=== PATIENT | female | born 1985 | race Caucasian/White ===

== ENCOUNTER → 2016-10-13 | Outpatient (CLI) | payer MEDICAID ==
--- NOTE | 2016-10-14 08:50 | XR ---
EXAMINATION TYPE: XR clavicle RT DATE OF EXAM: 10/13/2016 12:02 PM COMPARISON: NONE HISTORY: Pain TECHNIQUE: 2 view submitted FINDINGS: Osseous structures intact. AC joint maintained. No acute fracture or dislocation. IMPRESSION: 1. No acute fracture or dislocation. If symptoms persist follow-up exam in 7-10 days recommended.
--- NOTE | 2016-10-14 08:51 | XR ---
EXAMINATION TYPE: XR shoulder complete RT DATE OF EXAM: 10/13/2016 12:02 PM COMPARISON: NONE HISTORY: Pain TECHNIQUE: Three views are submitted. FINDINGS: The osseous structures are intact. There is no acute fracture or dislocation. The AC joint is maint ained. IMPRESSION: 1. No acute process.
== END | disposition home or self-care (01) ==
LOC: RADXRYALE 11:31
PROVIDERS: ATTEND Family Medicine
DX: M25.511 Pain in right shoulder (principal); M89.8X1 Other specified disorders of bone, shoulder

== ENCOUNTER → 2017-05-12 | Outpatient (CLI) | payer MEDICAID ==
--- NOTE | 2017-05-13 07:10 | US ---
EXAMINATION TYPE: US abdomen complete DATE OF EXAM: 05/12/2017 COMPARISON: NONE CLINICAL HISTORY: Rt Upper quadrant pain R10.11. RUQ pain x 2 months, intermittent nausea EXAM MEASUREMENTS: Liver Length: 14.5 cm Gallbladder Wall: 0.3 cm CBD: 0.2 cm Spleen: 11.8 cm Right Kidney: 12.7 x 4.2 x 4.9 cm Left Kidney: 11.6 x 4.3 x 4.2 cm Pancreas: visualized portions appear wnl Liver: appears wnl Gallbladder: no evidence of stones Evidence for sonographic Trevino's sign: no CBD: wnl Spleen: wnl Right Kidney: no evidence of hydronephrosis or mass, limited evaluation of lower pole due to overlyi ng bowel Left Kidney: no evidence of hydronephrosis or mass Upper IVC: wnl Abd Aorta: wnl The liver is homogenous. The intrahepatic portion of the IVC and proximal abdominal aorta are within normal limits. There is no evidence of cholelithiasis. Common bile duct is unremarkable. The visu alized portions of the pancreas are homogenous. The spleen is unremarkable. Kidneys are symmetric a nd free of hydronephrosis. No renal lesions are seen. IMPRESSION: Normal study
== END | disposition home or self-care (01) ==
LOC: RADUSWWP 15:25
PROVIDERS: ATTEND Family Medicine
DX: R10.11 Right upper quadrant pain (principal)
CPT/HCPCS: 76700

== ENCOUNTER → 2018-07-01 | Outpatient (CLI) | payer MEDICAID ==
--- NOTE | 2018-07-01 10:50 | MR ---
EXAMINATION TYPE: MR brain w con, MR cervical spine w con DATE OF EXAM: 07/01/2018 COMPARISON: MRI brain and c-spine dated 06/02/2018. HISTORY: Headache and neck pain. TECHNIQUE: Multiplanar, multisequence images of the cervical spine, brain and brainstem are all performed with I V contrast, utilizing 7 (accession [id number]), 7.0 (accession [id number]) mL intravenous Gadavist . FINDINGS: Post contrast images of the brain show no suspicious enhancing lesions or enhancement. 4 mm focus near dorsal left aspect fourth ventricle axial image 11 shows T1 hypointensity with tiny enhan cing surrounding vessel but no internal enhancement. The lesion identified on FLAIR sagittal image 18 measuring 4 to 5 mm in craniocaudal length. Post contrast images of the cervical spine show no suspicious enhancement or enhancing intramedullary lesions. IMPRESSION: No enhancing brain or cervical spinal cord lesions identified.
== END | disposition home or self-care (01) ==
LOC: RADMRIMAIN 09:36
PROVIDERS: ATTEND Psychiatry & Neurology Neurology
DX: R51 Headache (principal); M54.2 Cervicalgia
CPT/HCPCS: 70552; 72142; A9585

== ENCOUNTER → 2018-08-30 | Outpatient (CLI) | payer MEDICAID ==
[2018-08-30 13:47] LABS: Total Protein,CSF 24 mg/dL (12-60)
[2018-08-30 14:32] LABS: Appearance,CSF Clear; CSF Tube Number 4; Nucleated Cells, CSF 0 u/L (0-5); Red Blood Cell,CSF 0 u/L (0-10)
[2018-09-01 12:37] LABS: IgG - CSF 1.3 mg/dL (0.0 - 3.4); IgG/Albumin Index (CSF) 0.59 (0.00 - 0.77); Immunoglobulin G 943 mg/dL (700 - 1600)
== END | disposition home or self-care (01) ==
LOC: LABWHC1 08:31
PROVIDERS: ATTEND Psychiatry & Neurology Pain Medicine
DX: R53.83 Other fatigue (principal); R20.0 Anesthesia of skin; H53.8 Other visual disturbances; Z51.81 Encounter for therapeutic drug level monitoring
CPT/HCPCS: 36415; 82040; 82042; 82306; 82784; 83873; 83916; 84157; 84439; 84443; 84481; 87801; 89050

== ENCOUNTER → 2018-09-23 | Outpatient (CLI) | payer MEDICAID ==
[2018-09-23 20:14] LABS: Rheumatoid Factor 6 IU/mL (0-15)
[2018-09-23 20:43] LABS: Cyclic Citrullinated Pep IgG NEGATIVE (NEGATIVE); DNA Double-Stranded NEGATIVE (NEGATIVE); RNP 1.3 AI; Scleroderma SC-70 Ab <0.2 AI
[2018-09-24 14:59] LABS: ANA Pattern Homogeneous
== END | disposition home or self-care (01) ==
LOC: LABWHC1 12:04
PROVIDERS: ATTEND Psychiatry & Neurology Pain Medicine
DX: M25.50 Pain in unspecified joint (principal)
CPT/HCPCS: 36415; 83516; 85652; 86038; 86039; 86140; 86200; 86225; 86235; 86431

== ENCOUNTER → 2019-01-25 | Outpatient (CLI) | payer MEDICAID ==
--- NOTE | 2019-01-25 12:09 | XR ---
EXAMINATION TYPE: XR chest 2V DATE OF EXAM: 01/25/2019 COMPARISON: 05/08/1711 HISTORY: Screening for autoimmune disorder. TECHNIQUE: Frontal and lateral views of the chest are obtained. FINDINGS: There is no focal air space opacity, pleural effusion, or pneumothorax seen. The cardiac silhouette size is within normal limits. The osseous structures are intact. IMPRESSION: No acute cardiopulmonary process.
== END | disposition home or self-care (01) ==
LOC: RADXRYALE 10:06
PROVIDERS: ATTEND Specialist
DX: R76.8 Other specified abnormal immunological findings in serum (principal)
CPT/HCPCS: 71046

== ENCOUNTER → 2019-02-10 | Outpatient (CLI) | payer MEDICAID ==
--- NOTE | 2019-02-10 10:48 | US ---
EXAMINATION TYPE: US gallbladder DATE OF EXAM: 02/10/2019 COMPARISON: US 2017 CLINICAL HISTORY: R10.0 Severe abd pain. Intermittent RUQ pain x 1 year, occasional nausea EXAM MEASUREMENTS: Liver Length: 14.2 cm Gallbladder Wall: 0.1 cm CBD: 0.3 cm Right Kidney: 11.4 x 4.4 x 5.5 cm Pancreas: visualized portions wnl, head and tail limited by overlying midline bowel gas Liver: wnl Gallbladder: wnl Evidence for sonographic Trevino's sign: yes CBD: wnl Right Kidney: wnl IMPRESSION: No sonographic evidence of cholelithiasis nor acute cholecystitis. Positive sonographic M urphy sign is noted by the surgical technology instructor. Therefore HIDA scan and CCK could be performed to evaluate fo r biliary dyskinesia.
== END | disposition home or self-care (01) ==
LOC: RADUSWWP 10:13
PROVIDERS: ATTEND Internal Medicine
DX: R10.0 Acute abdomen (principal)
CPT/HCPCS: 76705

== ENCOUNTER → 2019-02-17 | Outpatient (CLI) | payer MEDICAID ==
--- NOTE | 2019-02-17 15:20 | NM ---
EXAMINATION TYPE: NM hepatobiliary w EF DATE OF EXAM: 02/17/2019 COMPARISON: NONE HISTORY: Severe abdominal pain TECHNIQUE: After the intravenous administration of 4.9 mCi Tc 99m Mebrofenin hepatobiliary scintigrap hy is performed. Immediate images post injection. FINDINGS: There is satisfactory initial accumulation of tracer by the liver. The gallbladder is visualized wit hin 6 minutes. The small bowel activity is noted within 18 minutes. At one hour 8 ounces of oral en sure plus is given to mimic CCK and gallbladder ejection fraction is calculated at 74 %, in the deirdre l range. Therefore there is no scintigraphic evidence of cystic or common bile duct obstruction to s uggest acute cholecystitis or gallbladder dyskinesia. IMPRESSION: No scintigraphic evidence of acute cholecystitis or chronic cholecystitis. Gallbladder ej ection fraction is within normal limits at 74% however the patient did experience sharp abdominal ulises n after consuming ensure. Clinically biliary dyskinesia appears to be present however no scintigraphi c evidence of biliary dyskinesia is seen.
== END | disposition home or self-care (01) ==
LOC: RADNMMAIN 12:54
PROVIDERS: ATTEND Internal Medicine
DX: K82.8 Other specified diseases of gallbladder (principal)
CPT/HCPCS: 78226; A9537

== ENCOUNTER 2019-06-27 10:39 | Day surgery (SDC) | payer MEDICAID ==
[2019-06-23 13:48] VITALS: BMI 25.7
[~2019-06-27 10:39] MED LIST: LACTATED RINGERS 1,000 ML IV SCH; LIDOCAINE 1% 20 ML VIAL (10MG/ML) FOR IV START INTRADERMA PRN
[2019-06-27 11:00] VITALS: TEMP 97.9
[2019-06-27] MEDS ORDERED: PROPOFOL 10 MG/ML 20 ML VIAL IV ONE (11:45)
--- NOTE | 2019-06-27 12:00 | P.PCN ---
Date of Procedure: 06/27/19 Procedure(s) Performed: Preoperative Dx: Abdominal pain Postoperative Dx: Mild gastritis, mild distal esophagitis Procedure: EGD with Bx Anesthesia: Sedation Endoscopist: Dr. Mccracken Specimens: Duodenum, antrum, distal esophagus Endoscopic Procedure: The patient was on the endoscopy table in the left decubitus position. The Olympus gastroscope was inserted into the oropharynx and passed under direct visualization to the region of the third portion of the duodenum. From that point the scope was slowly withdrawn inspecting all surfaces carefully. There were no neoplastic inflammatory or polypoid lesions throughout the duodenum. A biopsy of the duodenum took place to evaluate for celiac disease. The pylorus was widely patent. The stomach was carefully inspected. There was I'll gastritis present. A biopsy of the antrum took place to rule out H. pylori. Retroflexion revealed a normal hiatus. The esophagus was then carefully examined. There was noted to be mild distal esophagitis with a single linear erosion measuring less than 1 cm. The patient was then taken to the recovery room in stable condition per anesthesia guidelines. Recommendations: Await biopsy results. Tentatively plan CT abdomen followed by GI evaluation if symptoms persist.
[2019-06-27 12:17] VITALS: BP 112/74; PULSE 87; RESP 17
== END 2019-06-27 12:45 | disposition home or self-care (01) ==
LOC: ORWHC2ENDO 10:39
PROVIDERS: ATTEND Surgery
DX: K29.50 Unspecified chronic gastritis without bleeding (principal); K20.9 Esophagitis, unspecified; Z88.8 Allergy status to other drugs, medicaments and biological substances; Z83.2 Family history of diseases of the blood and blood-forming organs and certain disorders involving the immune mechanism; G43.909 Migraine, unspecified, not intractable, without status migrainosus; J45.909 Unspecified asthma, uncomplicated; K21.9 Gastro-esophageal reflux disease without esophagitis; Z79.899 Other long term (current) drug therapy
CPT/HCPCS: 81025; 88305; 43239; J2704

== ENCOUNTER → 2019-07-09 | Outpatient (CLI) | payer MEDICAID ==
--- NOTE | 2019-07-10 11:55 | CT ---
EXAMINATION TYPE: CT abdomen w con DATE OF EXAM: 07/09/2019 COMPARISON: HIDA scan 02/17/2019 HISTORY: RUQ abdominal pain CT DLP: 496.4 mGycm Automated exposure control for dose reduction was used. TECHNIQUE: Helical acquisition of images was performed from the lung bases through the top of iliac crest to include entire abdomen. CONTRAST: Performed with Oral Contrast and with IV Contrast, patient injected with 100 ml mL of Isovue 300. FINDINGS: There is an umbilical hernia containing fat seen best on sagittal image #77. LUNG BASES: No significant abnormality is appreciated. LIVER/GB: No significant abnormality is appreciated. PANCREAS: No significant abnormality is seen. SPLEEN: No significant abnormality is seen. ADRENALS: No significant abnormality is seen. KIDNEYS: At the lower pole the right kidney there are 2 small nonobstructive calcifications, larger m easuring approximately 3 mm. BOWEL: No significant abnormality is seen. The appendix is not seen. LYMPH NODES: No significant abnormality is appreciated. OSSEOUS STRUCTURES: Degenerative disc changes are present lower lumbar spine. FREE AIR: No Free Air visible ASCITES: None visible. RETROPERITONEAL ADENOPATHY: No Retroperitoneal Adenopathy visible. OTHER: IMPRESSION: RIGHT NEPHROLITHIASIS. Umbilical hernia.
== END | disposition home or self-care (01) ==
LOC: RADCTMAIN 07:58
PROVIDERS: ATTEND Surgery
DX: N20.0 Calculus of kidney (principal); K42.9 Umbilical hernia without obstruction or gangrene
CPT/HCPCS: 74160; Q9967

== ENCOUNTER → 2019-08-10 | Outpatient (CLI) | payer MEDICAID ==
--- NOTE | 2019-08-11 12:55 | ECHOF ---
Referral Reason:R76.8 positive AMALIA MEASUREMENTS -------- HEIGHT: 160.0 cm WEIGHT: 65.8 kg BP: RVIDd: 2.4 cm (< 3.3) IVSd: 0.9 cm (0.6 - 1.1) LVIDd: 3.8 cm (3.9 - 5.3) LVPWd: 0.9 cm (0.6 - 1.1) IVSs: 1.2 cm LVIDs: 2.4 cm LVPWs: 1.5 cm LAESV Index (A-L): 21.22 ml/m Ao Diam: 2.6 cm (2.0 - 3.7) AV Cusp: 1.9 cm (1.5 - 2.6) LA Diam: 3.0 cm (2.7 - 3.8) MV EXCURSION: 18.525 mm (> 18.000) MV EF SLOPE: 137 mm/s (70 - 150) EPSS: 0.5 cm MV E Kvng: 0.84 m/s MV DecT: 144 ms MV A Kvng: 0.60 m/s MV E/A Ratio: 1.38 RAP: 5.00 mmHg RVSP: 21.70 mmHg FINDINGS -------- Sinus rhythm. This was a technically good study. The left ventricular size is normal. Left ventricular wall thickness is normal. Overall left vent ricular systolic function is normal with, an EF between 55 - 60 %. The diastolic filling pattern is normal for the age of the patient 6.57. The right ventricle is normal in size. The left atrial size is normal. Normal LA size by volume 22+/-6 ml/m2. The right atrial size is normal. Possible PFO The aortic valve is trileaflet and appears structurally normal. The mitral valve is normal. Mild mitral regurgitation is present. There is minimal mitral valve p rolapse. The tricuspid valve appears structurally normal. Mild tricuspid regurgitation present. Right vent ricular systolic pressure is normal at < 35 mmHg. There is no pulmonic regurgitation present. The aortic root size is normal. Normal inferior vena cava with normal inspiratory collapse consistent with estimated right atrial pre ssure of 5 mmHg. There is no pericardial effusion. CONCLUSIONS -------- 1. Sinus rhythm. 2. This was a technically good study. 3. The left ventricular size is normal. 4. Left ventricular wall thickness is normal. 5. Overall left ventricular systolic function is normal with, an EF between 55 - 60 %. 6. The diastolic filling pattern is normal for the age of the patient 6.57 7. The right ventricle is normal in size. 8. The left atrial size is normal. 9. Normal LA size by volume 22+/-6 ml/m2. 10. The right atrial size is normal. 11. Possible PFO 12. The aortic valve is trileaflet and appears structurally normal. 13. The mitral valve is normal. 14. Mild mitral regurgitation is present. 15. There is minimal mitral valve prolapse. 16. The tricuspid valve appears structurally normal. 17. Mild tricuspid regurgitation present. 18. Right ventricular systolic pressure is normal at < 35 mmHg. 19. There is no pulmonic regurgitation present. 20. The aortic root size is normal. 21. Normal inferior vena cava with normal inspiratory collapse consistent with estimated right atrial pressure of 5 mmHg. 22. There is no pericardial effusion. ASSISTANT PROFESSOR OF CHEMISTRY: Sandy Tsang RDCS
== END | disposition home or self-care (01) ==
LOC: RADECHMAIN 11:07
PROVIDERS: ATTEND Specialist
DX: I08.1 Rheumatic disorders of both mitral and tricuspid valves (principal)
CPT/HCPCS: 93306

== ENCOUNTER → 2019-09-20 | Outpatient (CLI) | payer MEDICAID ==
--- NOTE | 2019-09-21 12:06 | ECHOS ---
STRESS ECHOCARDIOGRAM INDICATIONS: Palpitations and short of breath MEDICATIONS: None. BASELINE HEART RATE: 69 BASELINE BLOOD PRESSURE: 114/67 MAXIMUM HEART RATE: 194 MAXIMUM BLOOD PRESSURE: 136/50 85% MPHR: 160 100% MPHR: 188 METS: 11.4 MAXIMUM STAGE REACHED: 4 TOTAL EXERCISE TIME: 10:00 CLINICAL INFORMATION: Patient was exercised for a total period of 10 minutes. The peak heart rate of 194 was achieved. Maximum blood pressure of 136/50 mmHg was noted. Resting EKG shows normal sinus rhythm with normal [place] interval and QRS duration and normal ST-T waves. No ST- segment depression suggestive of ischemia is noted. Patient did not complain of any chest pain during the test. The baseline echocardiographic images reveals normal left ventricular chamber size with normal left ventricular systolic function in the immediate postexercise period. Normal increase in the wall thickness and contractility is noted. FINAL IMPRESSION: 1. This stress echocardiographic study is negative for stress-induced ischemia. 2. EKG portion of the stress test is not suggestive of ischemia. 3. The patient's exercise tolerance is excellent. 4. No dysrhythmias are noted. MMODL / IJN: [id number] /
--- NOTE | 2019-10-13 10:40 | EM ---
EVENT MONITOR This is a 21-day event monitor. INDICATION: Palpitations. The patient was monitored for 21 days. The baseline rhythm appeared to be sinus mechanism with predominantly sinus tachycardia. The patient did have one episode of paroxysmal atrial tachycardia with a heart rate of 110 beats per minute. No evidence of any sinus pause or sinus arrest. No evidence of any advanced AV block seen. In term of symptoms, the patient did report symptoms of chest pain and chest pressure and the symptoms were associated with sinus rhythm. CONCLUSION: 1. This is a 21-day event monitor. 2. Sinus rhythm and predominantly sinus tachycardia. 3. The patient did have one episode of paroxysmal atrial tachycardia with a heart rate of 110 beats per minute. 4. No evidence of sinus pause or sinus arrest. 5. No evidence of any advanced AV block. 6. The patient reported symptoms of chest pressure and irregular heartbeat and these symptoms were associated with normal sinus mechanism. MMODL / IJN: [id number] /
== END | disposition home or self-care (01) ==
LOC: RADNMMAIN 09:05
PROVIDERS: ATTEND Internal Medicine Interventional Cardiology
DX: I47.1 Supraventricular tachycardia (principal); R07.89 Other chest pain
CPT/HCPCS: 93270; 93351

== ENCOUNTER → 2019-12-01 | Outpatient (CLI) | payer MEDICAID ==
--- NOTE | 2019-12-01 14:57 | XR ---
EXAMINATION TYPE: XR lumbar spine 2 or 3V DATE OF EXAM: 12/01/2019 CLINICAL HISTORY: Low back pain. TECHNIQUE: Frontal and lateral images of the lumbar spine are obtained. COMPARISON: CT abdomen July 09, 2019 FINDINGS: Favored hypoplastic bilateral T12 ribs. With this assumption there are 5 lumbar type verte bra with slightly bow convex scoliotic curvature positioning centered L3-L4 level. No acute fracture or dislocation. Vertebral body heights remain within normal limits. Mild to moderate disc space narro wing L4-L5 level again seen with mild anterior spurring. The overlying soft tissue appears unremarka ble. IMPRESSION: As above.
== END | disposition home or self-care (01) ==
LOC: RADXRMAIN 14:25
PROVIDERS: ATTEND Internal Medicine
DX: M99.73 Connective tissue and disc stenosis of intervertebral foramina of lumbar region (principal); M41.86 Other forms of scoliosis, lumbar region
CPT/HCPCS: 72100

== ENCOUNTER → 2019-12-08 | Outpatient (CLI) | payer MEDICAID ==
--- NOTE | 2019-12-08 16:36 | MR ---
EXAMINATION TYPE: MR lumbar spine wo con DATE OF EXAM: 12/08/2019 COMPARISON: MRI lumbar spine March 18, 2016. CT abdomen June 19, 2019 HISTORY: Lower Back pain going down Right leg x 1 week. No known Trauma. TECHNIQUE: Multiplanar, multisequence imaging of the lumbar spine is performed without IV contrast. FINDINGS: Localizer redemonstrates slight levoconvex scoliotic curvature centered L4 level. Sagittal images of the lumbar spine show vertebral body heights and alignment to remain satisfactory on sagitt al images. Persistent disc desiccation and mild to moderate disc space narrowing L4-L5 and L5-S1 leve ls with heterogeneous Modic type I endplate changes anteriorly L4-L5 level again seen. New disc desic cation L3-L4 level. The conus medullaris remains stable in position ending mid T12 level. Posterior a nnular tears L4-L5 and L5-S1 levels redemonstrated. Axial images show the T12-L1, L1-L2, and L2-L3 levels also remain within normal limits. Axial images at the L3-L4 level show new left Paracentral disc protrusion minimally effacing anterior thecal sac axial image 16. Axial images at the L4-L5 level show persistent mild broad disc bulge mildly effacing the anterior th ecal sac and causing mild bilateral anterior inferior neural foraminal narrowing. No significant mcpherson ge from prior. Axial images at L5-S1 level show mild facet degenerative changes bilaterally with central disc protru ildefonso but the spinal canal is preserved and the bilateral neural foramina are patent. No significant c hange from prior. Partial visualization a anteverted uterus noted. Paraspinal muscle bulk preserved. IMPRESSION: Some new degenerative change L3-L4 level from 2016 MRI as detailed above. More prominent degenerative changes lower lumbar spine show no significant progression from 2016 MRI. No obvious new or worsening herniation to account for patient's right-sided radiculopathy type symptoms noted.
== END | disposition home or self-care (01) ==
LOC: RADMRIMAIN 15:43
PROVIDERS: ATTEND Internal Medicine
DX: M99.73 Connective tissue and disc stenosis of intervertebral foramina of lumbar region (principal); M48.061 Spinal stenosis, lumbar region without neurogenic claudication; M51.26 Other intervertebral disc displacement, lumbar region; M43.06 Spondylolysis, lumbar region; M41.86 Other forms of scoliosis, lumbar region
CPT/HCPCS: 72148

== ENCOUNTER → 2019-12-21 | Outpatient (CLI) | payer MEDICAID ==
[2019-12-21 17:22] LABS: Total Protein,CSF 32 mg/dL (12-60)
[2019-12-21 17:33] LABS: Appearance,CSF Clear; CSF Tube Number 4; CSF Tube Volume 3.5
[2019-12-21 17:34] LABS: Nucleated Cells, CSF 0 u/L (0-5); Red Blood Cell,CSF 0 u/L (0-10)
[2019-12-22 12:02] LABS: IgG - CSF 1.4 mg/dL (0.0 - 3.4); IgG/Albumin Index (CSF) 0.44 (0.00 - 0.77); Immunoglobulin G 962 mg/dL (700 - 1600)
== END | disposition home or self-care (01) ==
LOC: LABWHC1 09:04
PROVIDERS: ATTEND Psychiatry & Neurology Neurology
DX: Z51.81 Encounter for therapeutic drug level monitoring (principal); R42 Dizziness and giddiness; R90.82 White matter disease, unspecified; H53.8 Other visual disturbances; Z79.899 Other long term (current) drug therapy
CPT/HCPCS: 36415; 82040; 82042; 82306; 82784; 83873; 83916; 84157; 87801; 88108; 89050

== ENCOUNTER → 2019-12-27 | Outpatient (CLI) | payer MEDICAID ==
--- NOTE | 2019-12-28 08:16 | MR ---
EXAMINATION TYPE: MR brain/cspine wo/w DATE OF EXAM: 12/27/2019 COMPARISON: Prior MR brain and cervical spine 06/02/2018 HISTORY: MS, pain, inflammation, stiffness, cervicalgia TECHNIQUE: Multiplanar, multisequence images of the brain and brainstem, cervical spine is performed without and with IV contrast, utilizing 7 mL intravenous Gadavist . FINDINGS: Brain: Diffusion weighted images demonstrate no evidence of a recent infarct or other diffusion abnor mality. There is no extra-axial fluid collection or interval change in white matter signal abnormali ty, solitary focus of hyperintensity and inversion recovery T2-weighted sequences again noted posteri or to the fourth ventricle on the left within the cerebellar hemisphere just off the midline is stabl e. The ventricular system and cisternal spaces are normal in size and appearance. The brain volume is age appropriate. Midline structures demonstrate normal morphology. The craniocervical junction appears within normal limits. Post contrast images demonstrate no abnormal enhancement. The dural venous sinuses appear pa tent. The visualized sinuses are remarkable for possible mucus retention cyst in the left maxillary s inus which is grown slightly in the interval now measuring 16 mm as compared to prior exam when it me asured 11 mm along anterior maxillary sinus wall, mucoperiosteal thickening present in the bilateral maxillary sinuses, ethmoid air cells and the globes are intact. Cervical spine MRI: There is no interval change. Cervical cord signal is unremarkable. No abnormal en hancement. Mild degenerative disc change again seen. No significant spinal stenosis or foraminal encr oachment. Cervical vertebral bodies show preserved height, alignment, and bone marrow signal. Some mi ld loss of disc signal present at C5-6, C6-7 consistent with disc desiccation. IMPRESSION: Stable cervical and brain MRI, no enhancing plaques are evident.
== END | disposition home or self-care (01) ==
LOC: RADMRIMAIN 16:32
PROVIDERS: ATTEND Psychiatry & Neurology Pain Medicine
DX: M54.2 Cervicalgia (principal); R90.82 White matter disease, unspecified; Z88.8 Allergy status to other drugs, medicaments and biological substances
CPT/HCPCS: 70553; 72156; A9585

== ENCOUNTER → 2020-01-19 | Outpatient (CLI) | payer MEDICAID ==
[2020-01-19 14:41] LABS: Appearance,Urine Cloudy (Clear); Bacteria,Urine Rare /hpf; Bilirubin,Urine Negative (Negative); Blood,Urine Negative (Negative); Color,Urine Yellow; Glucose,Urine (UA) Negative (Negative); Ketones,Urine Negative (Negative); Leukocyte Esterase,Urine Moderate (Negative); Mucus,Urine Rare /hpf; Nitrite,Urine Negative (Negative); Protein,Urine Negative (Negative); RBC,Urine 1 /hpf (0-5); Specific Gravity,Urine 1.008 (1.001-1.035); Squamous Epithelial Cell,Urine 8 /hpf (0-4); Urobilinogen,Urine <2.0 mg/dL (<2.0); WBC,Urine 6 /hpf (0-5)
[2020-01-19 18:11] LABS: Protein, Total 6.3 g/dL (6.2-8.2)
[2020-01-19 19:20] LABS: C Reactive Protein <0.4 mg/dL (0.0-0.8); Creatine Kinase 147 U/L (26-186); Rheumatoid Factor, Qnt 7 IU/mL (0-15)
[2020-01-19 20:27] LABS: Hepatitis B Surface Antigen Non-Reactive (Non-Reactive); Hepatitis C IgG Antibody Non-Reactive (Non-Reactive)
[2020-01-19 20:54] LABS: Anti-Smith Ab Interp NEGATIVE (NEGATIVE); Cardiolipin Ab IgG Interp NEGATIVE (NEGATIVE); Cardiolipin Ab IgM Interp NEGATIVE (NEGATIVE); Cardiolipin IgA Antibody 1.7 U/mL; Cardiolipin IgM Antibody 0.8 U/mL; Cyclic Citrull Pep IgG Unit 0.5 U/mL; Cyclic Citrullinated Pep IgG NEGATIVE (NEGATIVE); DNA Double-Stranded NEGATIVE (NEGATIVE)
[2020-01-20 10:20] LABS: Free Kappa Lt Chain Qnt, Serum 0.72 mg/dL (0.33-1.94)
[2020-01-20 11:16] LABS: Complement C3 88.2 mg/dL (80.0-207.0)
[2020-01-20 13:51] LABS: ANA Pattern Homogeneous
[2020-01-21 08:53] LABS: HLA B27 NEGATIVE
== END | disposition home or self-care (01) ==
LOC: LABWHC1 13:12
PROVIDERS: ATTEND Internal Medicine Rheumatology
DX: R76.8 Other specified abnormal immunological findings in serum (principal)
CPT/HCPCS: 36415; 81001; 82085; 82164; 82550; 83516; 83883; 84165; 85613; 85730; 86038; 86039; 86140; 86147; 86160; 86162; 86200; 86225; 86235; 86255; 86334; 86431; 86803; 86812; 87340

== ENCOUNTER 2020-03-01 18:33 | Emergency (ER) | payer MEDICAID ==
[2020-03-01 18:42] VITALS: BP 115/72; PULSE 86; RESP 18; TEMP 98.6
--- NOTE | 2020-03-01 19:09 | ED ---
General Adult HPI - General Chief complaint: Extremity Injury, Lower Stated complaint: Ankle injury Time Seen by Provider: 03/01/20 18:42 Source: patient, RN notes reviewed, old records reviewed Mode of arrival: wheelchair Limitations: physical limitation - History of Present Illness Initial comments: 34-year-old female patient presents to ED for evaluation of right lower extremity injury. Patient reports that she was stepping off of a stationary 4 palacios when she believes that she might steps into a hole she has lateral ankle pain lateral fibula pain and some lateral foot pain. She denies hitting her head or her neck. Denies chance of being . Reports that her ankle is too painful too ambulate on. Denies any other complaints. Systemic: Pt denies fatigue, fever/chills, rash. Pt denies weakness, night sweats, weight loss. Neuro: Pt denies headache, visual disturbances, syncope or pre-syncope. HEENT: Pt denies ocular discharge or irritation, otalgia, rhinorrhea, pharyngitis or notable lymphadenopathy. Cardiopulmonary: Pt denies chest pain, SOB, heart palpitations, dyspnea on exertion. Abdominal/GI: Pt denies abdominal pain, n/v/d. : Pt denies dysuria, burning w/ urination, frequency/urgency. Denies new onset urinary or bowel incontinence. Neuro: Pt denies new onset weakness, paresthesias. - Related Data Home Medications Medication Instructions Recorded Confirmed Acetaminophen [Tylenol Extra 1,000 mg PO Q8H PRN 06/23/19 06/23/19 Strength] Allergies Allergy/AdvReac Type Severity Reaction Status Date / Time sumatriptan [From Imitrex] Allergy Swelling Verified 03/01/20 18:42 sumatriptan succinate Allergy Swelling Verified 03/01/20 18:42 [From Imitrex] Review of Systems ROS Statement: Those systems with pertinent positive or pertinent negative responses have been documented in the HPI. ROS Other: All systems not noted in ROS Statement are negative. Past Medical History Past Medical History: Asthma, GERD/Reflux, Pneumonia Additional Past Medical History / Comment(s): C/O RUQ abd pain, diarrhea. History of Any Multi-Drug Resistant Organisms: None Reported Past Surgical History: Appendectomy, Orthopedic Surgery Additional Past Surgical History / Comment(s): left knee surgery Past Anesthesia/Blood Transfusion Reactions: No Reported Reaction Past Psychological History: Anxiety, Depression Smoking Status: Never smoker Past Alcohol Use History: Occasional Past Drug Use History: None Reported - Past Family History Father Family Medical History: No Reported History Mother Family Medical History: No Reported History General Exam - General Exam Comments Initial Comments: Constitutional: NAD, AOX3, Pt has pleasant affect. HEENT: NC/AT, trachea midline, neck supple, no lymphadenopathy. External ears appear normal, without discharge. Mucous membranes moist. Eyes PERRLA, EOM intact. There is no scleral icterus. No pallor noted. Cardiopulmonary: RRR, no murmurs, rubs or gallops, no JVD noted. Lungs CTAB in anterior and posterior botello. No peripheral edema. Neuro: CN II-XII grossly intact. MSK: Right lateral malleoli lateral foot distal fibula tender to palpation. Mild minimal soft tissue swelling over lateral malleoli. Neurovascularly intact. Dorsalis pedis posterior tibialis pulse +2. Patient placed in a posterior ankle splint. Neurovascular intact after splint placement. No proximal tib-fib tenderness. Limitations: physical limitation Course Vital Signs 03/01/20 18:38 Temperature 98.6 F Pulse Rate 86 Respiratory 18 Rate Blood Pressure 115/72 O2 Sat by Pulse 98 Oximetry Medical Decision Making - Medical Decision Making 34-year-old female patient presents to ED with chief complaint right ankle injury. Patient will signs stable, afebrile. Plain films negative. Patient placed in a posterior ankle splint. Neurovascular intact before and after splint placement. Patient will discharge the patient orthopedic follow-up will use crutches will not bear weight on right lower extremity return to ER if condition worsens. Case discussed with Dr. English. Disposition Clinical Impression: Ankle sprain Disposition: HOME SELF-CARE Condition: Stable Instructions (If sedation given, give patient instructions): Ankle Sprain (ED), Foot Sprain (ED) Additional Instructions: Follow-up with primary care provider and orthopedic consult tomorrow. Continue to wear ankle splint. Use crutches, do not bear weight on right lower extremity. Return to ER if condition worsens in any way. Is patient prescribed a controlled substance at d/c from ED?: No Referrals: Cecelia Atkins MD [Primary Care Provider] - 1-2 days Russell Rodriguez PAC [PHYSICIAN [employer] SUPERVISOR] - 1-2 days
--- NOTE | 2020-03-01 19:25 | XR ---
EXAMINATION TYPE: XR foot complete RT DATE OF EXAM: 03/01/2020 COMPARISON: NONE HISTORY: Twisting injury. Foot pain TECHNIQUE: 3 views FINDINGS: Metatarsals are intact. I see no fracture nor dislocation. Joint spaces are normal. There a re no pathologic calcifications. IMPRESSION: Negative right foot exam.
--- NOTE | 2020-03-01 19:26 | XR ---
EXAMINATION TYPE: XR tibia fibula RT DATE OF EXAM: 03/01/2020 COMPARISON: NONE HISTORY: Pain and injury TECHNIQUE: 2 views FINDINGS: The tibia and fibula appear intact. I see no fracture nor dislocation. Ankle and knee joint appear intact. IMPRESSION: Negative right tibia and fibula exam.
--- NOTE | 2020-03-01 19:27 | XR ---
EXAMINATION TYPE: XR ankle complete RT DATE OF EXAM: 03/01/2020 COMPARISON: NONE HISTORY: Injury. Pain. TECHNIQUE: 3 views FINDINGS: Ankle mortise is anatomic. I see no fracture nor dislocation. Joint spaces are normal. Soft tissues appear normal. IMPRESSION: Negative right ankle exam.
== END 2020-03-01 20:46 | disposition home or self-care (01) ==
LOC: EC 18:33
DX: S93.401A Sprain of unspecified ligament of right ankle, initial encounter (principal); Z88.8 Allergy status to other drugs, medicaments and biological substances; X50.1XXA Overexertion from prolonged static or awkward postures, initial encounter; Y92.89 Other specified places as the place of occurrence of the external cause; Y93.89 Activity, other specified
CPT/HCPCS: 29515; 99284

== ENCOUNTER 2020-05-11 09:50 | Day surgery (SDC) | payer MEDICAID, OTHER ==
[2020-05-09 13:52] VITALS: BMI 27.4
[~2020-05-11 09:50] MED LIST changes: +LIDOCAINE 1% (10MG/ML) FOR IV START INTRADERMA PRN; -LIDOCAINE 1% 20 ML VIAL (10MG/ML) FOR IV START INTRADERMA PRN
[2020-05-11 10:44] VITALS: TEMP 97.7
[2020-05-11] MEDS ORDERED: PROPOFOL 10 MG/ML 20 ML VIAL IV ONE (12:00)
[2020-05-11] MEDS ORDERED: LIDOCAINE 1% INJ 10MG/ML (20 ML MDV) ONE (12:00)
--- NOTE | 2020-05-11 12:21 | P.PCN ---
Date of Procedure: 05/11/20 Procedure(s) Performed: BRIEF HISTORY: Patient is a 34-year-old pleasant white female scheduled for an elective colonoscopy as a part of evaluation of chronic diarrhea for the last 1 month duration. His been having bowel movements and rhythm 5-6 loose to watery in consistency. No blood or mucus in the stool. PROCEDURE PERFORMED: Colonoscopy. PREOPERATIVE DIAGNOSIS:Chronic diarrhea 1 month duration. IV sedation per Anesthesia. PROCEDURE: After informed consent was obtained, the patient, was brought into the endoscopy unit. IV sedation was administered by Anesthesia under continuous monitoring. Digital rectal examination was normal. Initially the Olympus CF-160 flexible video colonoscope was then inserted in the rectum, gradually advanced into the cecum without any difficulty. Careful examination was performed as the scope was gradually being withdrawn. Ileocecal valve and the appendiceal orifice were visualized and appeared normal. Terminal ileum was intubated and 20 cm visualized and appeared normal. Random biopsies were done from the terminal ileum. Prep was excellent. Mucosa of the cecum, ascending colon, transverse colon, descending colon, sigmoid colon, and rectum appeared normal. Random biopsies were also done from ascending and descending colon to rule out metastatic/collagenous colitis. Retroflexion was performed in the rectum and no lesions were seen. The patient tolerated the procedure well. IMPRESSION: Normal-appearing colon from rectum to cecumno evidence of colitis or colorectal neoplasia. Normal-appearing terminal ileum. RECOMMENDATIONS: Findings of this examination were discussed with the patientas well as his family. He was advised to follow with the biopsy results. She'll be seen in office in 2-3 weeks.].
[2020-05-11 12:46] VITALS: BP 102/68; PULSE 80; RESP 20
== END 2020-05-11 12:58 | disposition home or self-care (01) ==
LOC: ORWHC2ENDO 09:50
PROVIDERS: ATTEND Internal Medicine Gastroenterology
DX: K52.831 Collagenous colitis (principal); I47.1 Supraventricular tachycardia; K21.9 Gastro-esophageal reflux disease without esophagitis; Z88.8 Allergy status to other drugs, medicaments and biological substances; Z79.899 Other long term (current) drug therapy
CPT/HCPCS: 45380; 81025; 88305; 88313; J2001; J2704

== ENCOUNTER → 2020-05-14 | Outpatient (CLI) | payer OTHER ==
--- NOTE | 2020-05-15 06:35 | MR ---
EXAMINATION TYPE: MR liver wo con DATE OF EXAM: 05/14/2020 COMPARISON: CT abdomen July 09, 2019. Gallbladder ultrasound February 10, 2019 HISTORY: Hepatomegaly Standard multiplanar, multisequence MRI departmental protocol Multiplanar, multisequence images of the abdomen were acquired. Imaging is performed focusing on live r. IV contrast not given as technologist unable to get IV access. FINDINGS: Liver: Slight prominence of the left hepatic lobe. Liver overall measures upper limits of normal in s ize. No concerning solid or cystic intrahepatic mass seen on noncontrast images. Gallbladder contract ed in appearance. No suspicious biliary dilatation. No significant signal dropout. No surrounding asc ites. Other: Spleen size stable and within normal limits. Lung bases grossly clear. No concerning renal mas s or hydronephrosis. Pancreas and both adrenal glands remain within normal limits. Debris-filled stom ach suggests recent meal ingestion which correlates with contracted gallbladder. No suspicious small or large bowel dilatation. No abdominal ascites. No greater than 1 cm abdominal adenopathy. Vacuum di sc phenomenon noted in lower lumbar levels. IMPRESSION: As above.
== END | disposition home or self-care (01) ==
LOC: RADMRIMAIN 20:16
PROVIDERS: ATTEND Physician Assistant
DX: R16.0 Hepatomegaly, not elsewhere classified (principal)
CPT/HCPCS: 74181

== ENCOUNTER → 2020-11-06 | Outpatient (CLI) | payer OTHER | END | disposition home or self-care (01) | LOC: LABWHC1 10:11 | PROVIDERS: ATTEND Psychiatry & Neurology Pain Medicine | DX: M62.81 Muscle weakness (generalized) (principal); R53.83 Other fatigue | CPT/HCPCS: 36415; 83519 ==

== ENCOUNTER 2021-06-30 09:45 | Emergency (ER) | payer OTHER ==
[2021-06-30 09:59] VITALS: TEMP 99.4
--- NOTE | 2021-06-30 10:53 | ED ---
General Adult HPI - General Chief complaint: Upper Respiratory Infection Stated complaint: Covid+/BAM Time Seen by Provider: 06/30/21 10:00 Source: patient Mode of arrival: ambulatory Limitations: no limitations - History of Present Illness Initial comments: 35-year-old female presents to the emergency room for a chief complaint of antibody infusion. Patient tested positive for COVID-19 yesterday symptom started yesterday as well. Patient was told to come to the ER for antibodies. Patient is coughing and congested. Minimal shortness of breath. No chest pain. She is having body aches.Patient has no other complaints at this time including shortness of breath, chest pain, abdominal pain, nausea or vomiting, headache, or visual changes. - Related Data Home Medications Medication Instructions Recorded Confirmed No Known Home Medications 06/30/21 06/30/21 Allergies Allergy/AdvReac Type Severity Reaction Status Date / Time sumatriptan [From Imitrex] Allergy Swelling Verified 06/30/21 10:49 sumatriptan succinate Allergy Swelling Verified 06/30/21 10:49 [From Imitrex] Review of Systems ROS Statement: Those systems with pertinent positive or pertinent negative responses have been documented in the HPI. ROS Other: All systems not noted in ROS Statement are negative. Past Medical History Past Medical History: Asthma, GERD/Reflux, Neurologic Disorder, Pneumonia, Supraventricular Tachycardia (SVT) Additional Past Medical History / Comment(s): Current RUQ abd pain,(has had on and off X2 yrs) diarrhea, change in bowel habits. 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 Mass on liver having MRI 05/14/20. History of Any Multi-Drug Resistant Organisms: None Reported Past Surgical History: Appendectomy, Orthopedic Surgery Additional Past Surgical History / Comment(s): Left knee surgery. Past Anesthesia/Blood Transfusion Reactions: No Reported Reaction Past Psychological History: Anxiety, Depression Smoking Status: Never smoker Past Alcohol Use History: Occasional Past Drug Use History: None Reported - Past Family History Father Family Medical History: No Reported History Mother Family Medical History: No Reported History General Exam Limitations: no limitations General appearance: alert, in no apparent distress Head exam: Present: atraumatic Eye exam: Present: normal appearance, PERRL, EOMI. Absent: scleral icterus, conjunctival injection ENT exam: Present: normal exam, mucous membranes moist Neck exam: Present: normal inspection, full ROM. Absent: tenderness Respiratory exam: Present: normal lung sounds bilaterally. Absent: respiratory distress, wheezes Cardiovascular Exam: Present: regular rate, normal rhythm, normal heart sounds GI/Abdominal exam: Present: soft, normal bowel sounds. Absent: distended, tenderness Neurological exam: Present: alert Course Vital Signs 06/30/21 09:57 Temperature 99.4 F Pulse Rate 92 Respiratory 18 Rate Blood Pressure 116/80 O2 Sat by Pulse 99 Oximetry Medical Decision Making - Medical Decision Making Vitals are stable. Patient is 99% on room air. She is well appearing. No respiratory distress. Patient does have results for COVID-19 positive test. Paper copy available. Patient was given antibody infusion and monitored for one hour. Discussed return parameters. Discussed following up with her doctor. Disposition Clinical Impression: COVID-19 Disposition: HOME SELF-CARE Condition: Good Instructions (If sedation given, give patient instructions): Coronavirus Disease 2019 (COVID-19) Additional Instructions: Please take Motrin and Tylenol for fevers or body aches. Take vitamin C, D, and zinc [id number]. Drink plenty of fluids. Follow-up with your doctor. You're having worsening symptoms such as shortness of breath return to the emergency room. Is patient prescribed a controlled substance at d/c from ED?: No Referrals: Cecelia Atkins MD [Primary Care Provider] - 1-2 days Time of Disposition: 10:53
[2021-06-30] MEDS ORDERED: BAMLANIVIMAB (EUA) 700 MG, ETESEVIMAB (EUA) 1,400 MG in SODIUM CHLORIDE 0.9% 50 ML IVPB ONE (11:30)
[2021-06-30] MEDS ORDERED: SODIUM CHLORIDE 0.9% 50 ML IVPB ONE (11:30)
[2021-06-30 13:33] VITALS: BP 115/82; PULSE 83; RESP 18
== END 2021-06-30 13:33 | disposition home or self-care (01) ==
LOC: EC 09:45
DX: U07.1 COVID-19 (principal); J45.909 Unspecified asthma, uncomplicated; F41.9 Anxiety disorder, unspecified; F32.A Depression, unspecified; Z72.89 Other problems related to lifestyle
CPT/HCPCS: 96360 ×2; 99284 ×2; M0245; J3490

== ENCOUNTER → 2021-08-01 | Outpatient (CLI) | payer OTHER ==
--- NOTE | 2021-08-01 14:29 | MR ---
EXAMINATION TYPE: MR brain wo/w con DATE OF EXAM: 08/01/2021 COMPARISON: Prior MRI brain December 27, 2019 HISTORY: Headache. White matter changes. TECHNIQUE: Multiplanar, multisequence images of the brain and brainstem is performed without and with IV contras t, utilizing 7 mL intravenous Gadavist gadolinium contrast is administered intravenously. Demyelinat ing disease protocol with additional Sagittal Flair sequence performed. FINDINGS: T2 Lesions Present : Yes Approximate Number of Lesions: 1 Size of Reference Lesion(s): Single 4 x 5 x 3 mm deep left cerebellar lesion axial image 10 and sagittal image 16 redemonstrated a nd stable. Enhancing Lesion(s) Present: No T1 Hypointense Lesion(s) Present: No Change from Prior: Stable Diffusion weighted images demonstrate no evidence of a recent infarct or other diffusion abnormality. There is no worrisome extra-axial fluid collection. The ventricular system and cisternal spaces ar e normal in size and appearance. The brain volume is age appropriate. Midline structures demonstrate normal morphology. The craniocervical junction appears within normal limits. Post contrast images demonstrate no abnormal enhancement. The dural venous sinuses appear pa tent. The visualized sinuses are clear and the globes are intact. IMPRESSION: Stable nonspecific near 5 mm deep left cerebellar lesion. No new or enhancing lesions. No significant change from prior MRI.
== END | disposition home or self-care (01) ==
LOC: RADMRIMAIN 11:06
PROVIDERS: ATTEND Psychiatry & Neurology Neurology
DX: G93.89 Other specified disorders of brain (principal)
CPT/HCPCS: 70553; A9585

== ENCOUNTER 2022-08-13 20:17 | Emergency (ER) | payer OTHER ==
[2022-08-13 20:27] VITALS: TEMP 98.3
--- NOTE | 2022-08-13 21:03 | XR ---
EXAMINATION TYPE: XR chest 2V DATE OF EXAM: 08/13/2022 8:59 PM COMPARISON: Chest radiographs from 01/25/2019 TECHNIQUE: XR chest 2V Frontal and lateral views of the chest. CLINICAL INDICATION:Female, 37 years old with history of Chest Pain; FINDINGS: Lungs/Pleura: There is no evidence of pleural effusion, focal consolidation, or pneumothorax. Pulmonary vascularity: Unremarkable. Heart/mediastinum: Cardiomediastinal silhouette is unremarkable. Musculoskeletal: No acute osseous pathology. IMPRESSION: No acute cardiopulmonary disease/process.
--- NOTE | 2022-08-13 21:07 | ED ---
Chest Pain HPI - General Chief Complaint: Chest Pain Stated Complaint: chest pain Time Seen by Provider: 08/13/22 20:29 Source: patient, RN notes reviewed Mode of arrival: ambulatory Limitations: no limitations - History of Present Illness Initial Comments: 37-year-old female presents emergency Department chief complaint of chest discomfort. Patient states started earlier today centralized left-sided. Patient states she has mild discomfort with deep inspiration she denies any prior PE or DVT patient does have history of asthma Patient states that she does have a history of SVT and PFO. Patient states that she noticed that she's had increase in thirst, dry mouth. Patient denies Pain with states that she's been having intermittent leg swelling and achiness of her legs at nighttime. Denies any recent traveling. - Related Data Home Medications Medication Instructions Recorded Confirmed No Known Home Medications 06/30/21 08/13/22 Allergies Allergy/AdvReac Type Severity Reaction Status Date / Time sumatriptan [From Imitrex] Allergy Swelling Verified 08/13/22 21:14 sumatriptan succinate Allergy Swelling Verified 08/13/22 21:14 [From Imitrex] Review of Systems ROS Statement: Those systems with pertinent positive or pertinent negative responses have been documented in the HPI. ROS Other: All systems not noted in ROS Statement are negative. EKG Findings - EKG Comments: EKG Findings:: EKG performed at 20:35 sinus rhythm rate of 79 OR 179 QRS 78 QT/QTC 360/395 - EKG Results: EKG: interpreted by BRANDON Past Medical History Past Medical History: Asthma, GERD/Reflux, Neurologic Disorder, Pneumonia, Supraventricular Tachycardia (SVT) Additional Past Medical History / Comment(s): Current RUQ abd pain,(has had on and off X2 yrs) diarrhea, change in bowel habits. 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 Mass on liver having MRI 05/14/20. History of Any Multi-Drug Resistant Organisms: None Reported Past Surgical History: Appendectomy, Orthopedic Surgery Additional Past Surgical History / Comment(s): Left knee surgery. Past Anesthesia/Blood Transfusion Reactions: No Reported Reaction Past Psychological History: Anxiety, Depression Smoking Status: Never smoker Past Alcohol Use History: Occasional Past Drug Use History: None Reported - Past Family History Father Family Medical History: No Reported History Mother Family Medical History: No Reported History Course Vital Signs 08/13/22 08/13/22 20:25 20:52 Temperature 98.3 F Pulse Rate 82 79 Respiratory 16 15 Rate Blood Pressure 127/58 107/59 O2 Sat by Pulse 100 99 Oximetry Chest Pain MDM - MDM Was pt. sent in by a medical professional or institution ([facility], COMMISS[employer] POLICE OFFICER, urgent care, hospital, or senior care...) When possible be specific @ -No Did you speak to anyone other than the patient for history (EMS, parent, family, police, friend...)? What history was obtained from this source @ -No Did you review nursing and triage notes (agree or disagree)? Why? @ -I reviewed and agree with nursing and triage notes Were old charts reviewed (outside hosp., previous admission, EMS record, old EKG, old radiological studies, urgent care reports/EKG's, senior care records)? Report findings @ -No old charts were reviewed Differential Diagnosis (chest pain, altered mental status, abdominal pain women, abdominal pain men, vaginal bleeding, weakness, fever, dyspnea, syncope, headache, dizziness, GI bleed, back pain, seizure, CVA, palpatations, mental health)? @ -Chest wall pain, pneumonia, PE, ACS, pneumothorax, this is is not all inclusive EKG interpreted by me (3pts min.). @ -As above X-rays interpreted by me (1pt min.). @ -Chest x-rays unremarkable CT interpreted by me (1pt min.). @ -None done U/S interpreted by me (1pt. min.). @ -None done What testing was considered but not performed or refused? (CT, X-rays, U/S, labs)? Why? @ -None What meds were considered but not given or refused? Why? @ -Offered pain meds patient declined. Did you discuss the management of the patient with other professionals (professionals i.e. [facility], COMMISSIONED POLICE OFFICER, lab, RT, psych nurse, manager social, field professional, teacher, chemistry technical officer, caser up)? Give summary @ -No Was smoking cessation discussed for >3mins.? @ -No Was critical care preformed (if so, how long)? @ -No Were there social determinants of health that impacted care today? How? (Homelessness, low income, unemployed, alcoholism, drug addiction, transportation, low edu. Level, literacy, decrease access to med. care, skilled nursing, rehab)? @ -No Was there de-escalation of care discussed even if they declined (Discuss DNR or withdrawal of care, Hospice)? DNR status @ -No What co-morbidities impacted this encounter? (DM, HTN, Smoking, COPD, CAD, Cancer, CVA, ARF, Chemo, Hep., AIDS, mental health diagnosis, sleep apnea, morbid obesity)? @ -None Was patient admitted / discharged? Hospital course, mention meds given and route, prescriptions, significant lab abnormalities, going to OR and other pertinent info. @ -Discharge patient reports including labs, EKG, chest x-ray with no acute findings. Patient does have mild reproducible chest wall pain. Patient will be discharged in stable condition. Patient has been complaining of leg pain and Undiagnosed new problem with uncertain prognosis? @ -No Drug Therapy requiring intensive monitoring for toxicity (Heparin, Nitro, Insulin, Cardizem)? @ -No Were any procedures done? @ -No Diagnosis/symptom? @ -Atypical chest pain Acute, or Chronic, or Acute on Chronic? @ -Acute Uncomplicated (without systemic symptoms) or Complicated (systemic symptoms)? @ -Uncomplicated Side effects of treatment? @ -No Exacerbation, Progression, or Severe Exacerbation? @ -No Poses a threat to life or bodily function? How? (Chest pain, USA, VT, pneumonia, PE, COPD, DKA, ARF, appy, cholecystitis, CVA, Diverticulitis, Homicidal, Suicidal, threat to staff... and all critical care pts) @ -No Disposition Clinical Impression: Atypical chest pain, Chest wall pain Disposition: HOME SELF-CARE Condition: Stable Instructions (If sedation given, give patient instructions): Chest Pain (ED) Additional Instructions: Please return to the Emergency Department if symptoms worsen or any other concerns. Is patient prescribed a controlled substance at d/c from ED?: No Referrals: Taj Mckenzie MD [Primary Care Provider] - 1-2 days Time of Disposition: 22:15
[2022-08-13 21:26] LABS: Basophils # (A) 0.1 k/uL (0-0.2); Basophils % (A) 1 %; Eosinophils # (A) 0.1 k/uL (0-0.7); Eosinophils % (A) 2 %; HGB 12.6 gm/dL (11.4-16.0); Lymphocytes # (A) 1.9 k/uL (1.0-4.8); Lymphocytes % (A) 37 %; MCH 29.9 pg (25.0-35.0); MCV 88.2 fL (80.0-100.0); Mean Platelet Volume 7.5; Monocytes # (A) 0.3 k/uL (0-1.0); Monocytes % (A) 5 %; Neutrophils # (A) 2.7 k/uL (1.3-7.7); Neutrophils % (A) 53 %; Platelet Count 193 k/uL (150-450)
[2022-08-13 21:34] LABS: ALT 14 U/L (4-34); AST 16 U/L (14-36); African American GFR (CKD) >90 (>60 ml/min/1.73 sqM); Albumin 4.6 g/dL (3.5-5.0); Alkaline Phosphatase 62 U/L (38-126); Anion Gap 8 mmol/L; Blood Urea Nitrogen 15 mg/dL (7-17); Carbon Dioxide 25 mmol/L (22-30); Chloride 105 mmol/L (98-107); Glucose 96 mg/dL (74-99); Non-African American GFR(CKD) >90 (>60 ml/min/1.73 sqM); Sodium 138 mmol/L (137-145); Total Bilirubin 0.3 mg/dL (0.2-1.3); Total Protein 6.9 g/dL (6.3-8.2)
[2022-08-13 21:45] LABS: Partial Thromboplastin Time 24.9 sec (22.0-30.0); Prothrombin Time 10.4 sec (9.0-12.0)
[2022-08-13 22:33] VITALS: BP 103/87; PULSE 82; RESP 16
== END 2022-08-13 22:33 | disposition home or self-care (01) ==
LOC: EC 20:17
DX: R07.89 Other chest pain (principal); J45.909 Unspecified asthma, uncomplicated; F41.9 Anxiety disorder, unspecified; F32.A Depression, unspecified; Z90.49 Acquired absence of other specified parts of digestive tract; Z88.8 Allergy status to other drugs, medicaments and biological substances
CPT/HCPCS: 36415; 71046; 80053; 83735; 83880; 84484; 85025; 85379; 85610; 85730; 93005; 99285

== ENCOUNTER 2022-10-23 06:16 | Day surgery (SDC) | payer OTHER ==
[2022-10-21 15:11] VITALS: BMI 25.7
[2022-10-23] MEDS ORDERED: SODIUM CHLORIDE 0.9% 500 ML 500 ML IV ONE (06:37)
[2022-10-23 06:48] VITALS: TEMP 98.1
[2022-10-23] MEDS ORDERED: fentaNYL (PF) 50 MCG/ML 2 ML AMP ONE (07:18)
[2022-10-23] MEDS: BENZOCAINE SPRAY 1 CAN TOPICAL ONE ×2 (07:25→07:43)
[2022-10-23] MEDS: fentaNYL (PF) 50 MCG/ML 2 ML AMP IV ONE ×2 (07:43→07:46)
[2022-10-23] MEDS ORDERED: MIDAZOLAM 2 MG/2 ML VIAL IV ONE ×2 (07:43→07:46)
[2022-10-23 09:11] VITALS: BP 99/67; PULSE 72; RESP 16
--- NOTE | 2022-10-23 20:07 | P.PCN ---
Date of Procedure: 10/23/22 Operative Findings: TRANSESOPHAGEAL ECHOCARDIOGRAM STREET COMMISSIONER: BARB FAY MD, RPVI INDICATION: Rule out patent foramen ovale SEDATION: Conscious sedation COMPLICATION: None LEVEL OF SEDATION Moderate sedation length of 15 minute PROCEDURE DESCRIPTION: After obtaining an informed consent, the patient was brought to transesophageal echocardiogram room. Pulse oximetry and heart monitors were attached to the patient. The patient throat was sprayed using lidocaine. The patient was turned into left lateral position. After that a bite guard was placed. After an appropriate conscious sedation was initiated, the transesophageal echocardiogram was advanced through a bite guard into the mid esophagus. A 2-D echocardiogram images, color Doppler images, continuous wave images, pulse-wave images, of various cardiac structure were performed. After that the transesophageal echocardiogram probe was advanced into the stomach and fixed to obtain transgastric view was. The probe was brought into the mid esophagus. Inter-atrial septum was interrogated using 2D images, color Doppler images, and then contrast study. After that transesophageal echocardiogram was withdrawn out and upon withdrawing the descending thoracic aorta all the way up to the arch was evaluated. FINDING: The left ventricular dimension and systolic function appeared to be within normal limits was EF around 55-60%. The right ventricle also appeared to be mildly dilated. The left atrium appeared to be within normal limits for dimension and the right H from appeared to be mildly dilated. Left atrial appendage appears to be free from any thrombus. The interatrial septum appeared to be hyperdynamic was evidence of patent foramen ovale. The aortic valve appears to be trileaflet valve with no stenosis or regurgitation. The mitral valve appeared to be normal with mild MR. Normal tricuspid valve and pulmonic valve. No evidence of pericardial effusion CONCLUSION: 1. Hyperdynamic interatrial septum with evidence off [id number] shunt. Possibly there is also [id number] shunt. The right side appeared to be slightly dilated 2. Mildly dilated right atrium and right ventricle 3. Intact left atrial appendage with no evidence of thrombus 4. Normal biventricular dimension and systolic function 5. Normal intracardiac valves 6. No evidence of pericardial effusion
== END 2022-10-23 08:52 | disposition home or self-care (01) ==
LOC: CATHCVL 06:16
PROVIDERS: ATTEND Internal Medicine Interventional Cardiology
DX: I51.7 Cardiomegaly (principal); I47.1 Supraventricular tachycardia; Z87.74 Personal history of (corrected) congenital malformations of heart and circulatory system; F17.210 Nicotine dependence, cigarettes, uncomplicated
CPT/HCPCS: 93312; 93320; 93325; 99152; 81025; J2250; J3010

== ENCOUNTER → 2022-12-01 | Outpatient (CLI) | payer OTHER ==
[2022-12-02 02:31] LABS: African American GFR (CKD) 137.5 (60.0-200.0); Anion Gap 9.8 mmol/L (10.00-18.00); Blood Urea Nitrogen 7.6 mg/dL (9.0-27.0); Carbon Dioxide 25.5 mmol/L (20.0-27.5); Non-African American GFR(CKD) 118.6 (60.0-200.0); Potassium 4.3 mmol/L (3.5-5.5)
[2022-12-02 02:45] LABS: HCT 38.2 % (37.2-46.3); MCH 29.1 pg (27.0-32.0); MCHC 31.4 g/dL (32.0-37.0); MCV 92.5 fL (80.0-97.0); Mean Platelet Volume 10.3 fL (9.5-12.2); NRBC Per 100 WBC 0 /100 WBCS (0.0-0.0); Platelet Count 199 X 10*3/uL (140-440); RBC 4.13 X 10*6/uL (4.10-5.20); RDW 12.3 % (11.5-14.5); WBC 6.36 X 10*3/uL (4.50-10.00)
== END | disposition home or self-care (01) ==
LOC: LABPAT 13:04
PROVIDERS: ATTEND Internal Medicine Interventional Cardiology
DX: Z01.812 Encounter for preprocedural laboratory examination (principal); Q21.10 Atrial septal defect, unspecified
CPT/HCPCS: 36415; 80051; 82565; 84520; 85027

== ENCOUNTER 2022-12-03 06:17 | Day surgery (SDC) | payer OTHER ==
[2022-12-01 08:56] VITALS: BMI 25.7
[~2022-12-03 06:17] MED LIST changes: +ALPRAZolam 0.25 MG TAB PO PRN; +ALPRAZolam 0.5 MG TAB PO PRN; +ASPIRIN 325 MG TAB PO STA; -LACTATED RINGERS 1,000 ML IV SCH; -LIDOCAINE 1% (10MG/ML) FOR IV START INTRADERMA PRN; +NITROGLYCERIN SL TABS 0.4 MG TAB SUBLINGUAL PRN; +SODIUM CHLORIDE 0.9% 1,000 ML in EMPTY BAG 1 BAG IV SCH
[2022-12-03] MEDS ORDERED: SODIUM CHLORIDE 0.9% 1,000 ML IV ONE (06:32)
[2022-12-03] MEDS ORDERED: HEPARIN SODIUM 1,000 UN/ML (10ML VL) ONE (07:32)
[2022-12-03] MEDS ORDERED: fentaNYL (PF) 50 MCG/ML 2 ML AMP ONE (07:41)
[2022-12-03] MEDS ORDERED: MIDAZOLAM 2 MG/2 ML VIAL IV ONE ×2 (07:42→08:21)
[2022-12-03] MEDS: fentaNYL (PF) 50 MCG/ML 2 ML AMP IV ONE ×2 (07:43→08:21)
[2022-12-03] MEDS ORDERED: LIDOCAINE 1% INJ 10MG/ML (20 ML MDV) SQ ONE (07:45)
[2022-12-03] MEDS ORDERED: HEPARIN SODIUM 1,000 UN/ML (10ML VL) IV ONE (07:52)
[2022-12-03] MEDS ORDERED: IOPAMIDOL-370 100ML BTL INJ ONE (08:37)
--- NOTE | 2022-12-03 18:24 | P.PCN ---
Date of Procedure: 12/03/22 Operative Findings: PERCUTANEOUS CLOSURE OF FENESTRATED INTERATRIAL SEPTUM PERFORMING PHYSICIAN: Ladarius Meyers MD, [facility] PROCEDURE PERFORMED: 1. Successful percutaneous closure of fenestrated interatrial septum using 30 mm Amplatzer PFO Occluder with an excellent results and without any residual shunt. 2. Intracardiac echocardiogram imaging. 3. Right atrial angiogram. 4. Ultrasound-guided access of the right common femoral vein 2 INDICATION: Fenestrated interatrial septum with evidence of bidirectional shunt this 37-year-old patient was diagnosed with a APPROACH: Right common femoral vein 2 COMPLICATION: None. LEVEL OF SEDATION: Moderate with sedation length of 35 minutes. PROCEDURE DESCRIPTION: After obtaining informed consent, the patient was brought to the cardiac lab support tech. The right common femoral vein was cannulated x2 using micropuncture technique under ultrasound guidance, the micropuncture wire passed easily, then I placed two 8-Cambodian sheath in the right groin. Subsequently I cannulated the left common femoral vein with the same technique and I placed an 8-Cambodian sheath there as well. At that point, anticoagulation was initiated using heparin and the patient was given a bolus of 3,000 units of heparin IV with continuous ACT monitoring throughout the procedure. After that, the intracardiac echocardiogram probe was advanced through one of the venous sheath all the way to the right atrium where we did interrogate the interatrial septum and identified the patent foramen ovale which was measured about 25 mm. Subsequently, I did cross the defect using 0.035 J-wire with the backup support of multipurpose catheter. The wire was advanced all the way to the left upper pulmonary vein and subsequently the catheter was advanced over the wire to the left upper pulmonary vein. The 0.035 J-wire was pulled out and then I advanced a cleo wire. Subsequently, the multipurpose catheter was withdrawn out and the wire was left in the left upper pulmonary vein. After that, I did prep the Amplatzer PFO occluder under saline. The device was loaded into the freezer unloader, which was attached to the sheath. Subsequently, I did exchange my 8-Cambodian sheath into the Shuttle sheath over a 0.035 cleo wire. The sheath was advanced all the way under fluoroscopy guidance to the left atrium. Subsequently, the dilator of the sheath was withdrawn out along with the wire. After that, I did load the Amplatzer occluder under george nuous saline flush to the sheath. The device was advanced all the way through the sheath were I did where I did deploy initially the left atrial occluder and then I pulled back the sheath and the left atrial occluder all the way to the interatrial septum and then I deployed the right atrial occluder after that. During the interrogation of the device and noticed that the device including the right atrial and left atrial occluder dislodge completely from the interatrial septum. At that point I realized that he needed to go device. I was able to advance 30 mm with the same technique. I deployed also at the same technique. The device appears to be more stable in spite of doing maneuver to pull the device out. Before I released the device, I did interrogate the septum using ice images on multiple views. After I realized that the device was stable enough and in good position the device was released. Interrogation using ice was also performed after the device was released. By the end I did right atrial angiogram. The procedure was completed without any complication. POSTPROCEDURE MANAGEMENT: 1. Dual anti-platelet therapy. 2. An echo in 24 hours, in 1 week, in 4 weeks, as well as in 6 months.
--- NOTE | 2022-12-04 07:20 | XR ---
EXAMINATION TYPE: XR chest 2V DATE OF EXAM: 12/04/2022 COMPARISON: 08/13/2022 HISTORY: 37-year-old female ASD/PFO placement TECHNIQUE: PA and lateral views FINDINGS: PFO closure device is noted. The cardiomediastinal silhouette, aorta, and pulmonary vasculature are w ithin normal limits. Lungs and pleural spaces are clear. IMPRESSION: Interval placement of PFO occluder device. No acute cardiopulmonary process.
--- NOTE | 2022-12-04 07:24 | P.DS ---
Providers Attending physician: Ladarius Meyers Primary care physician: [facility] Course: The patient is a pleasant 37-year-old female patient with underwent yesterday successful percutaneous closure of PFO with a good results and with no complication from right groin approach The patient was seen this morning. She is asymptomatic and she is hemodynamically stable was marginally low blood pressure but above 90 mmHg systolic The patient is going to be discharged home and I'll follow-up with the patient next week in the office Plan - Discharge Summary Discharge Rx Participant: No New Discharge Prescriptions: New Aspirin 81 mg PO DAILY #90 tab Clopidogrel [Plavix] 75 mg PO DAILY #90 tablet Continue Acetaminophen [Tylenol Extra Strength] 500 mg PO DIRECTED PRN PRN Reason: Pain Discharge Medication List Acetaminophen [Tylenol Extra Strength] 500 mg PO DIRECTED PRN 10/21/22 [History] Aspirin 81 mg PO DAILY #90 tab 12/04/22 [Rx] Clopidogrel [Plavix] 75 mg PO DAILY #90 tablet 12/04/22 [Rx] Follow up Appointment(s)/Referral(s): Ladarius Meyers MD [STAFF PHYSICIAN] - 1 Week
[2022-12-04 08:49] VITALS: BP 105/70; PULSE 87; RESP 18; TEMP 98.1
[2022-12-04] MEDS ORDERED: ASPIRIN 325 MG TAB PO SCH (09:00)
[2022-12-04] MEDS ORDERED: CLOPIDOGREL 75 MG TAB PO SCH (09:00)
--- NOTE | 2022-12-05 08:46 | CA ---
Transthoracic Echo Report Name: Vinita Justice Age: 37 Gender: F : 1985 Exam Date: 12/04/2022 07:26 Exam Location: [facility] Ht (in): 63 Wt (lb): 143 Ordering Physician: Ladarius Meyers MD ([id number]) Attending/Referring Phys: Recruitment Specialist Kali Benitez Procedure CPT: Indications: Post ASD/PFO Insertion Cardiac Hx: Post ASD/PFO Closure. Limited Study. Technical Quality: Good Contrast 1: Total Dose (mL): Contrast 2: Total Dose (mL): MEASUREMENTS (Male / Female) Normal Values 2D ECHO LV Diastolic Diameter PLAX 3.8 cm 4.2 - 5.9 / 3.9 - 5.3 cm IVS Diastolic Thickness 1.0 cm 0.6 - 1.0 / 0.6 - 0.9 cm LVPW Diastolic Thickness 0.9 cm 0.6 - 1.0 / 0.6 - 0.9 cm LV Relative Wall Thickness 0.5 RV Internal Dim ED PLAX 2.4 cm LVOT Diameter 2.0 cm Aortic Root Diameter 2.5 cm LA Systolic Diameter LX 2.6 cm 3.0 - 4.0 / 2.7 - 3.8 cm Ascending Aorta Diameter 2.6 cm DOPPLER TR Peak Velocity 191.2 cm/s TR Peak Gradient 14.6 mmHg Right Ventricular Systolic Press 19.6 mmHg FINDINGS Left Ventricle Left ventricular ejection fraction is estimated at 55-60 %. Right Ventricle Right Atrium Left Atrium Mitral Valve Aortic Valve Tricuspid Valve Pulmonic Valve Pericardium Normal pericardium. No pericardial or pleural effusion. Aorta CONCLUSIONS Normal LV size and systolic function. PFO closure device noted appears to be stable no shunt. No pericardial effusion Previewed by: Dr. Moe Miller MD (Electronically Signed) Final Date: 05 Dec 2022 08:46
== END 2022-12-04 11:02 | disposition home or self-care (01) ==
LOC: CATHCVL 06:17 → 3SCARD 08:41 → CATHCVL 12-04 11:02
PROVIDERS: ATTEND Internal Medicine Interventional Cardiology
DX: Q21.11 Secundum atrial septal defect (principal); Q21.10 Atrial septal defect, unspecified; I47.1 Supraventricular tachycardia; F17.210 Nicotine dependence, cigarettes, uncomplicated; Z79.01 Long term (current) use of anticoagulants; Z79.02 Long term (current) use of antithrombotics/antiplatelets; Z86.73 Personal history of transient ischemic attack (TIA), and cerebral infarction without residual deficits; Z79.82 Long term (current) use of aspirin; Z79.899 Other long term (current) drug therapy
CPT/HCPCS: 93580; 93662; 93308; 76937; 99152; 99153; 86900; 86901; 86850; 81025; 71046; C1769 ×5; C1894 ×2; C1760; C1817; C1759; J2250; J2001; J3010; J1644; Q9967

== ENCOUNTER → 2023-08-18 | Outpatient (CLI) | payer OTHER ==
--- NOTE | 2023-08-18 22:20 | MR ---
EXAMINATION TYPE: MR brain/cspine wo/w DATE OF EXAM: 08/18/2023 COMPARISON: MRI brain and cervical spine December 27, 2019 HISTORY: Rt side numbness/ neck pain/ headaches - Hx cerebellar lesion seen on MR scan from December 27 2019 TECHNIQUE: Multiplanar, multisequence images of the brain and brainstem and cervical spine are all performed wit hout and with IV contrast, utilizing 7ml mL intravenous Gadavist . Demyelinating disease protocol. FINDINGS: BRAIN: FINDINGS: T2 Lesions Present : Yes Approximate Number of Lesions: 1 Size of Reference Lesion(s): Single 6 x 4 mm deep left cerebellar lesion axial image 11 redemonstrated and stable. Enhancing Lesion(s) Present: No T1 Hypointense Lesion(s) Present: No Change from Prior: Stable Diffusion weighted images demonstrate no evidence of a recent infarct or other diffusion abnormality. There is no worrisome extra-axial fluid collection. The ventricular system and cisternal spaces ar e normal in size and appearance. The brain volume is age appropriate. Midline structures redemonstrate normal morphology. The craniocervical junction appears within deirdre l limits. Post contrast images demonstrate no abnormal enhancement. The dural venous sinuses appear patent. The visualized sinuses are clear and the globes are intact. IMPRESSION: Stable nonspecific near 5 mm deep left cerebellar lesion. No new or enhancing lesions. No significant change from prior MRI. C-SPINE: FINDINGS: Sagittal images of the cervical spine show the craniocervical junction to remain within nor mal limits. The cervical and upper thoracic spinal cord remains normal in course, caliber, and signa l. Vertebral alignment is stable anatomic. Mild disc desiccation C5-C6 and C6-C7 levels redemonstrat ed. The vertebral body and intravertebral disk heights are normal. The bone marrow signal intensity is within normal limits. No abnormal enhancement is seen. Axial images show there is no significant focal disk disease, spinal canal stenosis, neural foraminal narrowing, or spinal cord compromise at any cervical level. IMPRESSION: Stable mild degenerative changes in the cervical spine. No abnormal cord lesion or enhanc ement. No significant disc herniation is seen.
== END | disposition home or self-care (01) ==
LOC: RADMRIMAIN 21:00
PROVIDERS: ATTEND Internal Medicine Geriatric Medicine
DX: M47.812 Spondylosis without myelopathy or radiculopathy, cervical region (principal); F44.7 Conversion disorder with mixed symptom presentation; G45.9 Transient cerebral ischemic attack, unspecified
CPT/HCPCS: 70553; 72156; A9585

== ENCOUNTER → 2023-09-14 | Outpatient (CLI) | payer OTHER ==
--- NOTE | 2023-09-14 16:01 | US ---
EXAMINATION TYPE: US venous doppler duplex LE DATE OF EXAM: 09/14/2023 3:40 PM COMPARISON: NONE CLINICAL INDICATION: Female, 38 years old with history of M79.662 PAIN IN R LOW LEG M79.661 PAIN IN L LOW LE; No hx of DVT. Patient takes aspirin. Hx right knee surgery about 20 years ago. Patient has been having pain in the legs x 3 weeks. SIDE PERFORMED: Bilateral TECHNIQUE: The lower extremity deep venous system is examined utilizing real time linear array sonog eugene with graded compression, doppler sonography and color-flow sonography. VESSELS IMAGED: Common Femoral Vein Deep Femoral Vein Greater Saphenous Vein * Femoral Vein Popliteal Vein Small Saphenous Vein * Proximal Calf Veins (* superficial vessels) Right Leg: No evidence of DVT. Left Leg: No evidence of DVT. IMPRESSION: 1. No acute deep venous thrombosis bilateral lower extremities.
== END | disposition home or self-care (01) ==
LOC: RADUSWWP 15:05
PROVIDERS: ATTEND Internal Medicine Interventional Cardiology
DX: M79.661 Pain in right lower leg (principal); M79.662 Pain in left lower leg; Z79.82 Long term (current) use of aspirin
CPT/HCPCS: 93970

== ENCOUNTER 2023-09-16 10:44 | Emergency (ER) | payer OTHER ==
[2023-09-16 11:03] VITALS: TEMP 98.7
--- NOTE | 2023-09-16 11:16 | ED ---
Chest Pain HPI - General Source: patient, RN notes reviewed Mode of arrival: ambulatory Limitations: no limitations <Ruperto Theodore - Last Filed: 09/16/23 11:14> - General Source: RN notes reviewed, old records reviewed Mode of arrival: ambulatory Limitations: no limitations - History of Present Illness MD Complaint: chest pain, other (Shortness of breath dyspnea lower extremity edema) -: days(s) Onset: during rest, during exertion Pain Location: left chest, right chest Severity: mild Severity scale (1-10): 3 Consistency: intermittent Improves With: nothing, eating Anginal Symptoms: dyspnea, sense of impending doom Other Symptoms: palpitations Treatments Prior to Arrival: none <Domingo Castro - Last Filed: 09/26/23 20:31> - General Chief Complaint: Chest Pain Stated Complaint: Chest Pain Time Seen by Provider: 09/16/23 10:51 - History of Present Illness Initial Comments: Quick note -38-year-old female presents emergency department chief complaint of exertional shortness of breath, chest pain. Patient has a history of SVT. Patient states she does see Dr. Nelson she is recently started on further medication she states she does take metoprolol daily. Patient states symptoms are better at rest denies any fevers or chills. (Ruperto Theodore) This is a 38-year-old female to ER for chest pain with exertional shortness of breath and underlying history of SVT. Patient is having lower extremity edema and swelling. Patient is concerned about the amount of swelling that she is currently having is wellness or shortness of breath is not getting better and she notes that even with having conversation. (Domingo Castro) - Related Data Home Medications Medication Instructions Recorded Confirmed Aspirin EC [Ecotrin Low Dose] 81 mg PO DAILY 09/16/23 09/16/23 Metoprolol Tartrate [Lopressor] 12.5 mg PO BID 09/16/23 09/16/23 Triamterene/Hydrochlorothiazid 1 tab PO DAILY 09/16/23 09/16/23 [Triamterene-Hctz 37.5-25 mg Tb] Allergies Allergy/AdvReac Type Severity Reaction Status Date / Time sumatriptan [From Imitrex] Allergy Swelling Verified 09/16/23 15:13 sumatriptan succinate Allergy Swelling Verified 09/16/23 15:13 [From Imitrex] Review of Systems ROS Other: All systems not noted in ROS Statement are negative. <Ruperto Theodore - Last Filed: 09/16/23 11:14> ROS Other: All systems not noted in ROS Statement are negative. <Domingo Castro - Last Filed: 09/26/23 20:31> ROS Statement: Those systems with pertinent positive or pertinent negative responses have been documented in the HPI. 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 Mass on liver in 2019, had MRI and no further follow up since then. Migraines. History of Any Multi-Drug Resistant Organisms: None Reported Past Surgical History: Appendectomy, Orthopedic Surgery Additional Past Surgical History / Comment(s): ARTHROSCOPIC Left knee surgery. [facility]. PFO repair 12/03/22. Past Anesthesia/Blood Transfusion Reactions: No Reported Reaction Past Psychological History: Anxiety, Depression Smoking Status: Never smoker Past Alcohol Use History: Rare Past Drug Use History: None Reported - Past Family History Father Family Medical History: No Reported History Additional Family Medical History / Comment(s): Lupus Mother Family Medical History: No Reported History <Ruperto Theodore - Last Filed: 09/16/23 11:14> General Exam Limitations: no limitations <Ruperto Theodore - Last Filed: 09/16/23 11:14> General appearance: alert, in no apparent distress, anxious Head exam: Present: atraumatic, normocephalic, normal inspection Eye exam: Present: normal appearance, PERRL, EOMI. Absent: scleral icterus, conjunctival injection, periorbital swelling ENT exam: Present: normal exam, mucous membranes moist Neck exam: Present: normal inspection. Absent: tenderness, meningismus, lymphadenopathy Respiratory exam: Present: normal lung sounds bilaterally. Absent: respiratory distress, wheezes, rales, rhonchi, stridor Cardiovascular Exam: Present: regular rate, normal rhythm, normal heart sounds. Absent: systolic murmur, diastolic murmur, rubs, gallop, clicks GI/Abdominal exam: Present: soft, normal bowel sounds. Absent: distended, tenderness, guarding, rebound, rigid Extremities exam: Present: normal inspection, full ROM, normal capillary refill. Absent: tenderness, pedal edema, joint swelling, calf tenderness Back exam: Present: normal inspection Neurological exam: Present: alert, oriented X3, CN II-XII intact Psychiatric exam: Present: normal affect, normal mood Skin exam: Present: warm, dry, intact, normal color. Absent: rash <Domingo Castro - Last Filed: 09/26/23 20:31> - General Exam Comments Initial Comments: Visual Physical Exam Vital signs reviewed General: Well-appearing, nontoxic, no acute distress. Head: Normocephalic, atraumatic Eyes: PERRLA, EOMI ENT: Airway patent Chest: Nonlabored breathing Skin: No visual rash, normal skin tone Neuro: Alert and oriented 3 Musculoskeletal: No gross abnormalities (Ruperto Theodore) Course <Domingo Castro - Last Filed: 09/26/23 20:31> Vital Signs 09/16/23 09/16/23 10:55 15:39 Temperature 98.7 F Pulse Rate 79 85 Respiratory 18 12 Rate Blood Pressure 110/73 115/71 O2 Sat by Pulse 98 99 Oximetry - Reevaluation(s) Reevaluation #1: Medical records reviewed (Domingo Castro) Reevaluation #2: Patient symptoms unchanged (Domingo Castro) Reevaluation #3: Patient informed of results and questions answered Studies Chest x-ray is negative for acute disease (Domingo Castro) Reevaluation #4: Was pt. sent in by a medical professional or institution (, PA, AERONAUTICAL INSPECTOR, urgent care, hospital, or [place] health care facility...) When possible be specific @ -no Did you speak to anyone other than the patient for history (EMS, parent, family, police, friend...)? What history was obtained from this source @ -no Did you review nursing and triage notes (agree or disagree)? Why? @ -agree Are old charts reviewed (outside hosp., previous admission, EMS record, old EKG, old radiological studies, urgent care reports/EKG's, [place] health care facility records)? Report findings @ -yes Differential Diagnosis (chest pain, altered mental status, abdominal pain women, abdominal pain men, vaginal bleeding, weakness, fever, dyspnea, syncope, headache, dizziness, GI bleed, back pain, seizure, CVA, palpatations, mental health, musculoskeletal)? @ -prior EKG interpreted by me (3pts min.). @ -yes X-rays interpreted by me (1pt min.). @ -yes negative for acute disease CT interpreted by me (1pt min.). @ -no U/S interpreted by me (1pt. min.). @ -no What testing was considered but not performed or refused? (CT, X-rays, U/S, labs)? Why? @ -none What meds were considered but not given or refused? Why? @ -none Did you discuss the management of the patient with other professionals (professionals i.e. , PA, AERONAUTICAL INSPECTOR, lab, RT, psych nurse, hospital social worker, rail car welder, teacher, correctional officer, correctional casework specialist)? Give summary @ -no Was smoking cessation discussed for >3mins.? @ -no Was critical care preformed (if so, how long)? @ -no Were there social determinants of health that impacted care today? How? (H omelessness, low income, unemployed, alcoholism, drug addiction, transportation, low edu. Level, literacy, decrease access to med. care, residential, rehab)? @ -none Was there de-escalation of care discussed even if they declined (Discuss DNR or withdrawal of care, Hospice)? DNR status @ -no What co-morbidities impacted this encounter? (DM, HTN, Smoking, COPD, CAD, Cancer, CVA, ARF, Chemo, Hep., AIDS, mental health diagnosis, sleep apnea, morbid obesity)? @ -none Was patient admitted / discharged? Hospital course, mention meds given and route, prescriptions, significant lab abnormalities, going to OR and other pertinent info. @ - 38 female for nonspecific exertional dyspnea and chest pain. No acute findings here in the ER patient can be discharged home Discharge Undiagnosed new problem with uncertain prognosis? @ -no Drug Therapy requiring intensive monitoring for toxicity (Heparin, Nitro, Insulin, Cardizem)? @ -no Were any procedures done? @ -no Diagnosis/symptom? @ -Chest pain and dyspnea Acute, or Chronic, or Acute on Chronic? @ -Acute Uncomplicated (without systemic symptoms) or Complicated (systemic symptoms)? @ -Complicated Side effects of treatment? @ -no Exacerbation, Progression, or Severe Exacerbation? @ -exacerbation Poses a threat to life or bodily function? How? (Chest pain, [place], MS, pneumonia, PE, COPD, DKA, ARF, appy, cholecystitis, CVA, Diverticulitis, Homicidal, Suicidal, threat to staff... and all critical care pts) @ -yes (Domingo Castro) Reevaluation #5: Differential Chest Pain: Stable Angina, Unstable Angina, STEMI, NSTEMI Aortic Dissection, Pneumothorax, Musculoskeletal, Esophageal Spasm GERD, Cholecystitis, Pancreatitis, Zoster, this is not meant to be an all-inclusive list. (Domingo Castro) Chest Pain MDM <Ruperto Theodore - Last Filed: 09/16/23 11:14> <Domingo Castro - Last Filed: 09/26/23 20:31> - MDM I completed the quick note portion of this chart signed Ruperto Theodore PA-C (Ruperto Theodore) 38 female for nonspecific exertional dyspnea and chest pain. No acute findings here in the ER patient can be discharged home (Domingo Castro) Disposition <Rupreto Theodore - Last Filed: 09/16/23 11:14> Is patient prescribed a controlled substance at d/c from ED?: No <Domingo Castro - Last Filed: 09/26/23 20:31> Clinical Impression: Chest pain, Exertional dyspnea, Bilateral leg edema Disposition: HOME SELF-CARE Condition: Good Instructions (If sedation given, give patient instructions): Angina (ED), Leg Edema (ED), Dyspnea (ED) Referrals: Katherine Baugh NPC [Family Provider] - 1-2 days Ladarius Meyers MD [STAFF PHYSICIAN] - 1-2 days
[2023-09-16 11:54] LABS: Basophils % (A) 1 %; Eosinophils # (A) 0.1 k/uL (0-0.7); Eosinophils % (A) 2 %; HCT 38.9 % (34.0-46.0); HGB 12.7 gm/dL (11.4-16.0); Lymphocytes # (A) 1.4 k/uL (1.0-4.8); Lymphocytes % (A) 25 %; MCHC 32.7 g/dL (31.0-37.0); MCV 88.7 fL (80.0-100.0); Mean Platelet Volume 8.9; Monocytes # (A) 0.3 k/uL (0-1.0); Monocytes % (A) 6 %; Neutrophils # (A) 3.5 k/uL (1.3-7.7); Neutrophils % (A) 65 %; Platelet Count 223 k/uL (150-450); RBC 4.39 m/uL (3.80-5.40); RDW 12.3 % (11.5-15.5); WBC 5.5 k/uL (3.8-10.6)
--- NOTE | 2023-09-16 12:01 | XR ---
EXAMINATION TYPE: XR chest 2V DATE OF EXAM: 09/16/2023 COMPARISON: 12/04/2022 INDICATION: Chest pain TECHNIQUE: Frontal and lateral views of the chest are obtained. FINDINGS: The heart size is normal. The pulmonary vasculature is normal. The lungs are clear. Prior cardiac surgery is evident. IMPRESSION: 1. No acute pulmonary process.
[2023-09-16 12:02] LABS: ALT 16 U/L (4-34); AST 23 U/L (14-36); African American GFR (CKD) >90 (>60 ml/min/1.73 sqM); Albumin 5.2 g/dL (3.5-5.0); Alkaline Phosphatase 61 U/L (38-126); Anion Gap 8 mmol/L; Blood Urea Nitrogen 10 mg/dL (7-17); Calcium 9.7 mg/dL (8.4-10.2); Carbon Dioxide 27 mmol/L (22-30); Chloride 102 mmol/L (98-107); Glucose 97 mg/dL (74-99); Non-African American GFR(CKD) >90 (>60 ml/min/1.73 sqM); Partial Thromboplastin Time 26.4 sec (22.0-30.0); Prothrombin Time 10.7 sec (10.0-12.5); Sodium 137 mmol/L (137-145); Total Bilirubin 0.5 mg/dL (0.2-1.3); Total Protein 7.9 g/dL (6.3-8.2)
[2023-09-16 12:03] LABS: HCG,Qualitative Serum Not Detected
[2023-09-16 15:55] VITALS: BP 115/71; PULSE 85; RESP 12
== END 2023-09-16 15:41 | disposition home or self-care (01) ==
LOC: EC 10:44
DX: R07.89 Other chest pain (principal); R06.09 Other forms of dyspnea; R22.43 Localized swelling, mass and lump, lower limb, bilateral; J45.909 Unspecified asthma, uncomplicated; F41.9 Anxiety disorder, unspecified; F32.A Depression, unspecified; Z79.899 Other long term (current) drug therapy; Z79.82 Long term (current) use of aspirin; Z88.2 Allergy status to sulfonamides; Z88.8 Allergy status to other drugs, medicaments and biological substances
CPT/HCPCS: 36415; 71046; 80053; 83735; 84484; 84703; 85025; 85379; 85610; 85730; 93005; 99285

== ENCOUNTER → 2023-10-08 | Outpatient (CLI) | payer OTHER ==
[2023-10-08 16:09] LABS: Blood Urea Nitrogen 11.7 mg/dL (9.0-27.0); Calcium 9.5 mg/dL (8.7-10.3); Carbon Dioxide 29.4 mmol/L (21.6-31.8); Chloride 101 mmol/L (96-109); Glucose 97 mg/dL (70-110); Potassium 4.4 mmol/L (3.5-5.5); Sodium 141 mmol/L (135-145)
[2023-10-08 16:52] LABS: Appearance,Urine Clear (Clear); Bilirubin,Urine Negative (Negative); Blood,Urine Small (Negative); Color,Urine Yellow (Yellow); Ketones,Urine Negative (Negative); Nitrite,Urine Negative (Negative); PH, Urine 6.5; Specific Gravity,Urine 1.008 (1.001-1.030); Urobilinogen,Urine 0.2 E.U./DL
[2023-10-08 18:56] LABS: Bacteria,Urine None Seen (None Seen)
== END | disposition home or self-care (01) ==
LOC: LABWHC1 08:57
PROVIDERS: ATTEND Internal Medicine Interventional Cardiology
DX: Z51.81 Encounter for therapeutic drug level monitoring (principal); Z79.01 Long term (current) use of anticoagulants
CPT/HCPCS: 36415; 80048; 81001

== ENCOUNTER 2024-09-08 15:24 | Observation (INO) | payer BC, OTHER ==
--- NOTE | 2024-09-08 16:04 | ED ---
General Adult HPI - General Chief complaint: Chest Pain Stated complaint: Chest pain Time Seen by Provider: 09/08/24 15:33 Source: patient Mode of arrival: ambulatory - History of Present Illness Initial comments: Dictation was produced using [employer] dictation software. please excuse any grammatical, word or spelling errors. Chief Complaint: 39-year-old female chest pain History of Present Illness: Patient 39-year-old female presents emergency department chest pressure she has a history of PFO status post PFO closure, SVT and lupus states that she has substernal chest pressure. She states today she had some symptoms with what she describes as a coolness rating into her left upper extremity. She did complain of some nausea. No associate diaphoresis. Patient denies any history of ACS. She does report some family history of ACS. The ROS documented in this emergency department record has been reviewed and confirmed by me. Those systems with pertinent positive or negative responses have been documented in the HPI. All other systems are other negative and/or n oncontributory. - Related Data Home Medications Medication Instructions Recorded Confirmed No Known Home Medications 09/08/24 09/08/24 Allergies Allergy/AdvReac Type Severity Reaction Status Date / Time sumatriptan [From Imitrex] Allergy Anaphylaxis Verified 09/08/24 17:21 sumatriptan succinate Allergy Anaphylaxis Verified 09/08/24 17:21 [From Imitrex] Review of Systems ROS Statement: Those systems with pertinent positive or pertinent negative responses have been documented in the HPI. ROS Other: All systems not noted in ROS Statement are negative. 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 Mass on liver in 2019, had MRI and no further follow up since then. Migraines. History of Any Multi-Drug Resistant Organisms: None Reported Past Surgical History: Appendectomy, Orthopedic Surgery Additional Past Surgical History / Comment(s): ARTHROSCOPIC Left knee surgery. JOSE JUAN. PFO repair 12/03/22. Past Anesthesia/Blood Transfusion Reactions: No Reported Reaction Past Psychological History: Anxiety, Depression Smoking Status: Never smoker Past Alcohol Use History: Rare Past Drug Use History: None Reported - Past Family History Father Family Medical History: No Reported History Additional Family Medical History / Comment(s): Lupus Mother Family Medical History: No Reported History General Exam - General Exam Comments Initial Comments: PHYSICAL EXAM: General Impression: Alert and oriented x3, not in acute distress HEENT: Normocephalic atraumatic, extra-ocular movements intact, pupils equal and reactive to light bilaterally, mucous membranes moist. Cardiovascular: Heart regular rate and rhythm Chest: Able to complete full sentences, no retractions, no tachypnea Abdomen: abdomen soft, non-tender, non-distended, no organomegaly Musculoskeletal: Pulses present and equal in all extremities, no peripheral edema Motor: no focal deficits noted Neurological: CN II-XII grossly intact, no focal motor or sensory deficits noted Skin: Intact with no visualized rashes Psych: Normal affect and mood Course Vital Signs 09/08/24 15:26 Temperature 98.0 F Pulse Rate 96 Respiratory 18 Rate Blood Pressure 128/84 O2 Sat by Pulse 100 Oximetry EKG Findings - EKG Comments: EKG Findings:: My EKG interpretation: Ventricular rate 101, sinus tachycardia,. 177, QRS 88, QTc 3 9. No MD prolongation, no QTC prolongation, no ST or T-wave changes noted. Overall, this EKG is unremarkable Medical Decision Making - Medical Decision Making Was pt. sent in by a medical professional or institution (, PA, SUPERVISOR FINISHING ROOM, urgent care, hospital, or detention...) When possible be specific @ -No Did you speak to anyone other than the patient for history (EMS, parent, family, police, friend...)? What history was obtained from this source @ -No Did you review nursing and triage notes (agree or disagree)? Why? @ -I reviewed and agree with nursing and triage notes Were old charts reviewed (outside hosp., previous admission, EMS record, old EKG, old radiological studies, urgent care reports/EKG's, detention records)? Report findings @ -No old charts were reviewed Differential Diagnosis (chest pain, altered mental status, abdominal pain women, abdominal pain men, vaginal bleeding, musculoskeletal, weakness, fever, dyspnea, syncope, headache, dizziness, GI bleed, back pain, seizure, CVA, palpatations, mental health)? @ -Differential Chest Pain: Stable Angina, Unstable Angina, STEMI, NSTEMI Aortic Dissection, Pneumothorax, Musculoskeletal, Esophageal Spasm GERD, Cholecystitis, Pancreatitis, Zoster, this is not meant to be an all-inclusive list. EKG interpreted by me (3pts min.). @ -None done X-rays interpreted by me (1pt min.). @ -Chest x-ray shows no acute processes CT interpreted by me (1pt min.). @ -None done U/S interpreted by me (1pt. min.). @ -None done What testing was considered but not performed or refused? (CT, X-rays, U/S, labs)? Why? @ -None What meds were considered but not given or refused? Why? @ -None Was smoking cessation discussed for >3mins.? @ -No Were there social determinants of health that impacted care today? How? (Homelessness, low income, unemployed, alcoholism, drug addiction, transportation, low edu. Level, literacy, decrease access to med. care, chcf, re hab)? @ -No Was there de-escalation of care discussed even if they declined (Discuss DNR or withdrawal of care, Hospice)? DNR status @ -No What co-morbidities impacted this encounter? (DM, HTN, Smoking, COPD, CAD, Cancer, CVA, ARF, Chemo, Hep., AIDS, mental health diagnosis, sleep apnea, morbid obesity)? @ -None Was patient admitted / discharged? Hospital course, mention meds given and route, prescriptions, significant lab abnormalities, going to OR and other pertinent info. @ -39-year-old female presents to the emergency department atypical chest pain typical features. Vital signs upon arrival are within acceptable limits. EKG is unremarkable. Laboratory evaluation obtained is unremarkable including troponin. Urine hCG is negative. Patient given aspirin. Disposition options were discussed. Patient agreeable for observation admission with cardiology on consult. Did you discuss the management of the patient with other professionals (professionals i.e. , PA, SUPERVISOR FINISHING ROOM, lab, RT, psych nurse, social media developer, trading floor operator, teacher, collections officer, binder caser)? Give summary @ -Case discussed with hospitalist for admission Was critical care preformed (if so, how long)? @ -No Undiagnosed new problem with uncertain prognosis? @ -No Drug Therapy requiring intensive monitoring for toxicity (Heparin, Nitro, Insulin, Cardizem)? @ -No Were any procedures done? @ -No Diagnosis/symptom? Acute, or Chronic, or Acute on Chronic? Uncomplicated (without systemic symptoms) or Complicated (systemic symptoms)? @ -Chest pain Side effects of treatment? @ -No Exacerbation, Progression, or Severe Exacerbation? @ -No Poses a threat to life or bodily function? How? (Chest pain, [place], [place], pneumonia, PE, COPD, DKA, ARF, appy, cholecystitis, CVA, Diverticulitis, Homicidal, Suicidal, threat to staff... and all critical care pts) @ -Yes - Lab Data Result diagrams: 09/08/24 15:58 09/08/24 15:58 Lab Results 09/08/24 09/08/24 09/08/24 Range/Units 15:58 15:58 15:58 WBC 7.7 (3.8-10.6) k/uL RBC 4.11 (3.80-5.40) m/uL Hgb 12.3 (11.4-16.0) gm/dL Hct 36.1 (34.0-46.0) % MCV 87.8 (80.0-100.0) fL MCH 30.0 (25.0-35.0) pg MCHC 34.1 (31.0-37.0) g/dL RDW 12.4 (11.5-15.5) % Plt Count 204 (150-450) k/uL MPV 8.3 Neutrophils % 75 % Lymphocytes % 17 % Monocytes % 5 % Eosinophils % 1 % Basophils % 0 % Neutrophils # 5.8 (1.3-7.7) k/uL Lymphocytes # 1.3 (1.0-4.8) k/uL Monocytes # 0.4 (0-1.0) k/uL Eosinophils # 0.1 (0-0.7) k/uL Basophils # 0.0 (0-0.2) k/uL PT 10.8 (10.0-12.5) sec INR 1.0 (<1.2) APTT 24.6 (22.0-30.0) sec Sodium 139 (137-145) mmol/L Potassium 3.8 (3.5-5.1) mmol/L Chloride 105 (98-107) mmol/L Carbon Dioxide 24 (22-30) mmol/L Anion Gap 10 mmol/L BUN 7 (7-17) mg/dL Creatinine 0.60 (0.52-1.04) mg/dL Est GFR (CKD-EPI)AfAm >90 (>60 ml/min/1.73 sqM) Est GFR (CKD-EPI)NonAf >90 (>60 ml/min/1.73 sqM) Glucose 90 (74-99) mg/dL Calcium 9.4 (8.4-10.2) mg/dL Magnesium 2.0 (1.6-2.3) mg/dL Total Bilirubin 0.5 (0.2-1.3) mg/dL AST 19 (14-36) U/L ALT 16 (4-34) U/L Alkaline Phosphatase 46 (38-126) U/L Troponin I (0.000-0.034) ng/mL Total Protein 7.5 (6.3-8.2) g/dL Albumin 5.2 H (3.5-5.0) g/dL Urine HCG, Qual (Not Detectd) 09/08/24 09/08/24 Range/Units 15:58 16:48 WBC (3.8-10.6) k/uL RBC (3.80-5.40) m/uL Hgb (11.4-16.0) gm/dL Hct (34.0-46.0) % MCV (80.0-100.0) fL MCH (25.0-35.0) pg MCHC (31.0-37.0) g/dL RDW (11.5-15.5) % Plt Count (150-450) k/uL MPV Neutrophils % % Lymphocytes % % Monocytes % % Eosinophils % % Basophils % % Neutrophils # (1.3-7.7) k/uL Lymphocytes # (1.0-4.8) k/uL Monocytes # (0-1.0) k/uL Eosinophils # (0-0.7) k/uL Basophils # (0-0.2) k/uL PT (10.0-12.5) sec INR (<1.2) APTT (22.0-30.0) sec Sodium (137-145) mmol/L Potassium (3.5-5.1) mmol/L Chloride (98-107) mmol/L Carbon Dioxide (22-30) mmol/L Anion Gap mmol/L BUN (7-17) mg/dL Creatinine (0.52-1.04) mg/dL Est GFR (CKD-EPI)AfAm (>60 ml/min/1.73 sqM) Est GFR (CKD-EPI)NonAf (>60 ml/min/1.73 sqM) Glucose (74-99) mg/dL Calcium (8.4-10.2) mg/dL Magnesium (1.6-2.3) mg/dL Total Bilirubin (0.2-1.3) mg/dL AST (14-36) U/L ALT (4-34) U/L Alkaline Phosphatase (38-126) U/L Troponin I <0.012 (0.000-0.034) ng/mL Total Protein (6.3-8.2) g/dL Albumin (3.5-5.0) g/dL Urine HCG, Qual Not Detected (Not Detectd) Disposition Clinical Impression: Chest pain Disposition: ADMITTED IP TO THIS [facility] Condition: Fair Referrals: Taj Mckenzie MD [Primary Care Provider] - 1-2 days Decision Time: 17:33
--- NOTE | 2024-09-08 16:21 | XR ---
EXAMINATION TYPE: XR chest 2V DATE OF EXAM: 09/08/2024 4:18 PM COMPARISON: Chest radiographs from 09/16/2023 TECHNIQUE: XR chest 2V Frontal and lateral views of the chest. CLINICAL INDICATION:Female, 39 years old with history of Chest Pain; FINDINGS: Lungs/Pleura: There is no evidence of pleural effusion, focal consolidation, or pneumothorax. Pulmonary vascularity: Unremarkable. Heart/mediastinum: Cardiomediastinal silhouette is unremarkable. Atrial septal closure device identi fied. Musculoskeletal: No acute osseous pathology. IMPRESSION: No acute cardiopulmonary disease/process. [facility], , 09/08/2024 4:19 PM
[2024-09-08 16:22] LABS: Basophils % (A) 0 %; Eosinophils # (A) 0.1 k/uL (0-0.7); Eosinophils % (A) 1 %; HCT 36.1 % (34.0-46.0); HGB 12.3 gm/dL (11.4-16.0); Lymphocytes # (A) 1.3 k/uL (1.0-4.8); Lymphocytes % (A) 17 %; MCHC 34.1 g/dL (31.0-37.0); MCV 87.8 fL (80.0-100.0); Mean Platelet Volume 8.3; Monocytes # (A) 0.4 k/uL (0-1.0); Monocytes % (A) 5 %; Neutrophils # (A) 5.8 k/uL (1.3-7.7); Neutrophils % (A) 75 %; Platelet Count 204 k/uL (150-450); RBC 4.11 m/uL (3.80-5.40); RDW 12.4 % (11.5-15.5); WBC 7.7 k/uL (3.8-10.6)
[2024-09-08 16:33] LABS: Partial Thromboplastin Time 24.6 sec (22.0-30.0); Prothrombin Time 10.8 sec (10.0-12.5)
[2024-09-08 16:35] LABS: ALT 16 U/L (4-34); AST 19 U/L (14-36); African American GFR (CKD) >90 (>60 ml/min/1.73 sqM); Albumin 5.2 g/dL (3.5-5.0); Alkaline Phosphatase 46 U/L (38-126); Anion Gap 10 mmol/L; Blood Urea Nitrogen 7 mg/dL (7-17); Calcium 9.4 mg/dL (8.4-10.2); Carbon Dioxide 24 mmol/L (22-30); Chloride 105 mmol/L (98-107); Glucose 90 mg/dL (74-99); Non-African American GFR(CKD) >90 (>60 ml/min/1.73 sqM); Potassium 3.8 mmol/L (3.5-5.1); Sodium 139 mmol/L (137-145); Total Bilirubin 0.5 mg/dL (0.2-1.3); Total Protein 7.5 g/dL (6.3-8.2)
[2024-09-08] MEDS ORDERED: NITROGLYCERIN SL TABS 0.4 MG TAB SUBLINGUAL PRN (17:31)
[2024-09-08] MEDS: ASPIRIN 81 MG PO STA (17:39)
[2024-09-09] MEDS: ASPIRIN 325 MG TAB PO SCH (08:04)
[2024-09-09 10:17] VITALS: BP 115/55; PULSE 76; TEMP 98.2
[2024-09-09 10:23] VITALS: RESP 18
[2024-09-09 10:55] LABS: Chol/HDL Ratio 2.31 Ratio; LDL Cholesterol,Calculated 85.7 mg/dL (0.0-131.0)
--- NOTE | 2024-09-09 11:46 | P.CRDCN ---
History of Present Illness Consult date: 09/09/24 Consult reason: chest pain History of present illness: This is a 39-year-old female patient of Dr. Meyers with past medical history of TIA with known PFO status post PFO closure, history of supraventricular tachycardia. We have been asked to evaluate the patient for chest pain. Patient states that she has had chest pain and intermittent tachycardia since Thursday. The intermittent tachycardia has been going on for longer time. Pain is a pressure type sensation. She states that had some dizziness but no syncopal episode. Patient states that her heart rate has been jumping up to the 130s and then down to 70 and then back up to 120. Heart rate has been controlled in the 70s90s since her arrival to the ER. Blood pressure 106/58, heart rate 70, pulse ox 97% on room air. Patient is seen today in the emergency center waiting for a bed on the observation unit. -EKG: Sinus rhythm with no acute changes -Chest x-ray: No acute process. -Laboratory studies: CBC, INR, CMP within normal limits. Troponin negative x 3. hCG not detected. -Home cardiac medications: None -Echocardiogram performed in the office on 08/07/2023 revealed EF of 55 to 60%. PFO/ASD percutaneous closure device present. Trace to mild mitral digitation. Mild tricuspid regurgitation. PASP 37 mmHg. -Stress echocardiogram performed 09/2019: Negative for stress-induced ischemia. EKG portion is not suggestive of ischemia. Patient's exercise tolerance is excellent. No dysrhythmias noted. Review Of Systems: At the time of my exam: CONSTITUTIONAL: Denies fever or chills. HEENT: Denies blurred vision, vision changes, or eye pain. Denies hemoptysis CARDIOVASCULAR: Denies chest pain. Denies orthopnea. Denies PND. Denies palpitations RESPIRATORY: Denies shortness of breath. GASTROINTESTINAL: Denies abdominal pain. Denies nausea or vomiting. HEMATOLOGIC: Denies bleeding disorders. GENITOURINARY: Denies any blood in urine. SKIN: Denies puritis. Denies rash. Physical examination: Gen: This is a 39-year-old female in no acute distress VS: reviewed HEENT: Head is atraumatic, normocephalic. Pupils equal, round. Sclerae is anicteric. NECK: Supple. No JVD. LUNGS: Clear to auscultation. No wheezes or rhonchi. No intercostal retractions. HEART: Regular rate and rhythm. Systolic murmur. ABDOMEN: Soft No tenderness. EXTREMITIES: No pedal edema. No calf tenderness. NEUROLOGICAL: Patient is awake, alert and oriented x3. Assessment: Atypical chest pain, acute coronary syndrome ruled out History of TIA History of PFO status post PFO closure History of supraventricular tachycardia Plan: Schedule patient for stress echocardiogram today No need to obtain echocardiogram If stress test is unremarkable, patient is cleared for discharge from cardiology and may follow-up in the office with Dr. Meyers in 2 weeks. Thank you kindly for this consultation. Nurse practitioner note has been reviewed, I agree with documented findings and plan of care. Patient was seen and examined. Past Medical History Past Medical History: Asthma, GERD/Reflux, Neurologic Disorder, Pneumonia, Supraventricular Tachycardia (SVT) Additional Past Medical History / Comment(s): FND (Functional Neuologic Disorde r) causing MS symptoms. Mass on liver in 2019, had MRI and no further follow up since then. Migraines. History of Any Multi-Drug Resistant Organisms: None Reported Past Surgical History: Appendectomy, Orthopedic Surgery Additional Past Surgical History / Comment(s): ARTHROSCOPIC Left knee surgery. JOSE JUAN. PFO repair 12/03/22. Past Anesthesia/Blood Transfusion Reactions: No Reported Reaction Past Psychological History: Anxiety, Depression Smoking Status: Never smoker Past Alcohol Use History: Rare Past Drug Use History: None Reported - Past Family History Father Family Medical History: No Reported History Additional Family Medical History / Comment(s): Lupus Mother Family Medical History: No Reported History Medications and Allergies Home Medications Medication Instructions Recorded Confirmed Type No Known Home Medications 09/08/24 09/08/24 History Allergies Allergy/AdvReac Type Severity Reaction Status Date / Time sumatriptan [From Imitrex] Allergy Anaphylaxis Verified 09/08/24 17:21 sumatriptan succinate Allergy Anaphylaxis Verified 09/08/24 17:21 [From Imitrex] Physical Exam Vitals: Vital Signs Temp Pulse Resp BP Pulse Ox 09/09/24 06:29 70 18 106/58 97 09/09/24 01:00 98.3 F 74 18 108/56 97 09/08/24 19:49 91 18 115/51 99 09/08/24 17:43 96 16 104/59 99 09/08/24 15:26 98.0 F 96 18 128/84 100 Intake and Output 09/08/24 09/09/24 09/09/24 22:59 06:59 14:59 Other: Weight 72.575 kg Results 09/08/24 15:58 09/08/24 15:58 Cardiac Enzymes 09/08/24 09/08/24 09/08/24 Range/Units 15:58 15:58 18:30 AST 19 (14-36) U/L Troponin I <0.012 <0.012 (0.000-0.034) ng/mL 09/08/24 Range/Units 21:39 AST (14-36) U/L Troponin I <0.012 (0.000-0.034) ng/mL Coagulation 09/08/24 Range/Units 15:58 PT 10.8 (10.0-12.5) sec APTT 24.6 (22.0-30.0) sec CBC 09/08/24 Range/Units 15:58 WBC 7.7 (3.8-10.6) k/uL RBC 4.11 (3.80-5.40) m/uL Hgb 12.3 (11.4-16.0) gm/dL Hct 36.1 (34.0-46.0) % Plt Count 204 (150-450) k/uL Comprehensive Metabolic Panel 09/08/24 Range/Units 15:58 Sodium 139 (137-145) mmol/L Potassium 3.8 (3.5-5.1) mmol/L Chloride 105 (98-107) mmol/L Carbon Dioxide 24 (22-30) mmol/L BUN 7 (7-17) mg/dL Creatinine 0.60 (0.52-1.04) mg/dL Glucose 90 (74-99) mg/dL Calcium 9.4 (8.4-10.2) mg/dL AST 19 (14-36) U/L ALT 16 (4-34) U/L Alkaline Phosphatase 46 (38-126) U/L Total Protein 7.5 (6.3-8.2) g/dL Albumin 5.2 H (3.5-5.0) g/dL Current Medications Generic Name Dose Route Start Last Admin Trade Name Freq PRN Reason Stop Dose Admin Aspirin 325 mg 09/09/24 09:00 Aspirin 325 Mg Tab PO DAILY CYNTHIA Nitroglycerin 0.4 mg 09/08/24 17:31 Nitroglycerin Sl Tabs 0.4 Mg Tab SUBLINGUAL Q5M PRN Chest Pain Intake and Output 09/08/24 09/09/24 09/09/24 22:59 06:59 14:59 Other: Weight 72.575 kg 09/08/24 15:58 09/08/24 15:58
--- NOTE | 2024-09-09 12:47 | P.HPIM ---
History of Present Illness H&P Date: 09/09/24 History of present illness; patient is a 39-year-old lady with past medical history significant for SVT, PFO s/p closure who presented to the ER because of who presented to the ER because of chest pain. Patient stated that she was all right yesterday when she started having chest pain that was central in location, pressure-like, radiating down her left arm. Patient was complaining of nausea at the time. There was no complaint of any aggravating or relieving factor associated chest pressure. Patient denies any shortness of breath. There is no current orthopnea or PND. Denies any lightheadedness or dizziness. Because of this chest pressure, patient came to the ER Initial lab work done in the ER showed WBC 9.7, hemoglobin 12.3, platelet count 204, sodium 139, potassium 3.8, BUN 7, creatinine 0.60, calcium 9.4, magnesium 2, AST 19, ALT 16, troponin 0.012 EKG done in the ER showed heart rate of 101, no ST segment elevation or depression seen, no T-wave inversions seen. Chest x-ray done in the ER showed no acute cardiopulmonary process Patient admitted to internal medicine service REVIEW OF SYSTEMS: CONSTITUTIONAL: No fever, no malaise, no fatigue. HEENT: No recent visual problems or hearing problems. Denied any sore throat. CARDIOVASCULAR: Mentioned above PULMONARY: Mentioned above GASTROINTESTINAL: No diarrhea, no nausea, no vomiting, no abdominal pain. NEUROLOGICAL: No headaches, no weakness, no numbness. HEMATOLOGICAL: Denies any bleeding or petechiae. GENITOURINARY: Denies any burning micturition, frequency, or urgency. MUSCULOSKELETAL/RHEUMATOLOGICAL: Denies any joint pain, swelling, or any muscle pain. ENDOCRINE: Denies any polyuria or polydipsia. The rest of the 14-point review of systems is negative. PHYSICAL EXAMINATION: GENERAL: The patient is alert and oriented x3, not in any acute distress. Well developed, well nourished. HEENT: Pupils are round and equally reacting to light. EOMI. No scleral icterus. No conjunctival pallor. Normocephalic, atraumatic. No pharyngeal erythema. No thyromegaly. CARDIOVASCULAR: S1 and S2 present. No murmurs, rubs, or gallops. PULMONARY: Chest is clear to auscultation, no wheezing or crackles. ABDOMEN: Soft, nontender, nondistended, normoactive bowel sounds. No palpable organomegaly. MUSCULOSKELETAL: No joint swelling or deformity. EXTREMITIES: No cyanosis, clubbing, or pedal edema. NEUROLOGICAL: Gross neurological examination did not reveal any focal deficits. SKIN: No rashes. Assessment and plan Chest pain, rule out acute coronary syndrome History of SVT Monitor vital signs Monitor CBC Monitor CMP Continue telemetry monitoring Trend troponin Ordered D-dimer Ordered stress echo Resume home med consult cardiology Labs and medication were reviewed.. Continue same treatment. Continue with symptomatic treatment. Resume home medication. Monitor labs and vitals. DVT and GI prophylaxis. Further recommendations as per clinical course of the patient Dictation was produced using [employer] dictation software. please excuse any grammatical, word or spelling errors. 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 Mass on liver in 2019, had MRI and no further follow up since then. Migraines. History of Any Multi-Drug Resistant Organisms: None Reported Past Surgical History: Appendectomy, Orthopedic Surgery Additional Past Surgical History / Comment(s): ARTHROSCOPIC Left knee surgery. JOSE JUAN. PFO repair 12/03/22. Past Anesthesia/Blood Transfusion Reactions: No Reported Reaction Past Psychological History: Anxiety, Depression Smoking Status: Never smoker Past Alcohol Use History: Rare Past Drug Use History: None Reported - Past Family History Father Family Medical History: No Reported History Additional Family Medical History / Comment(s): Lupus Mother Family Medical History: No Reported History Medications and Allergies Home Medications Medication Instructions Recorded Confirmed Type No Known Home Medications 09/08/24 09/08/24 History Allergies Allergy/AdvReac Type Severity Reaction Status Date / Time sumatriptan [From Imitrex] Allergy Anaphylaxis Verified 09/08/24 17:21 sumatriptan succinate Allergy Anaphylaxis Verified 09/08/24 17:21 [From Imitrex] Physical Exam Vitals: Vital Signs Temp Pulse Resp BP Pulse Ox 09/09/24 06:29 70 18 106/58 97 09/09/24 01:00 98.3 F 74 18 108/56 97 09/08/24 19:49 91 18 115/51 99 09/08/24 17:43 96 16 104/59 99 09/08/24 15:26 98.0 F 96 18 128/84 100 Intake and Output 09/08/24 09/09/24 09/09/24 22:59 06:59 14:59 Other: Weight 72.575 kg Results CBC & Chem 7: 09/08/24 15:58 09/08/24 15:58 Labs: Abnormal Lab Results - Last 24 Hours (Table) 09/08/24 Range/Units 15:58 Albumin 5.2 H (3.5-5.0) g/dL
--- NOTE | 2024-09-09 13:31 | CA ---
Stress Echo Report V[place]a Justice Age: 39 Gender: F : 1985 Exam Date: 09/09/2024 11:34 Exam Location: [facility] Ht (in): 63 Wt (lb): 160 Ordering Physician: Shaylee Richardson Referring Physician: Dylan CRUZ String Studies Director: Mary Ellen King RDCS Technologist Procedure CPT: Indication: Chest Pain ICD-9 Codes: Rhythm: Patient History: CHEST PAIN, DIFFICULTY IN BREATHING, PALPITATIONS, NUMBNESS IN FACE/NECK, ASTHMA Cardiac Medications: Medications in past 24 hours: Contrast: Stress Results Protocol: Cesar Total dose(mL): Exercise Duration (min:sec): 6:[address] Depression (mm): Angina Score: Peterson Score: METS: 7.3 Resting HR: 75 Resting BP: 114 / 73 Peak HR: 171 Peak BP: 158 / 55 Max Predicted HR: 183 93 % Max Predicted HR Target HR: 156 Double Product: [id number] Stress Summary: BP Response: Reason for Termination: MAX EXERTION/TARGET HR Cardiac Symptoms: NO SYMPTOMS ECG Analysis Resting ECG: Stress ECG: Arrhythmia: Echo Analysis Resting Echo: Peak Echo Analysis: MEASUREMENTS (Male/Female) Normal Values CONCLUSIONS Good exercise tolerance Normal electrocardiogram and echocardiogram in response to exercise Dr. Ladarius Meyers MD (Electronically Signed) Final Date: 09 September 2024 13:30
--- NOTE | 2024-09-09 13:40 | US ---
EXAMINATION TYPE: US venous doppler duplex LE BI DATE OF EXAM: 09/09/2024 1:27 PM COMPARISON: Venous Doppler ultrasound Doppler bilateral 09/14/2023 CLINICAL INDICATION: Female, 39 years old with history of Swelling, elevated d-dimer; No redness, Mike n TECHNIQUE: The lower extremity deep venous system is examined utilizing real time linear array sonog eug[place] with graded compression, color doppler sonography, and spectral doppler. SIDE PERFORMED: Bilateral FINDINGS: VESSELS IMAGED: Common Femoral Vein Deep Femoral Vein Greater Saphenous Vein * Femoral Vein Popliteal Vein Small Saphenous Vein * Proximal Calf Veins (* superficial vessels) Right Leg: Negative for DVT, Color Doppler imaging shows patency of the vessels. Spectral waveforms are within normal limits. Left Leg: Negative for DVT, Color Doppler imaging shows patency of the vessels. Spectral waveforms a re within normal limits. IMPRESSION: No ultrasound evidence for deep venous thrombosis. [facility], , 09/09/2024 1:37 PM
--- NOTE | 2024-09-09 14:42 | CT ---
EXAMINATION TYPE: CT chest angio for PE DATE OF EXAM: 09/09/2024 2:33 PM COMPARISON: Chest radiograph from same day. CLINICAL INDICATION: Female, 39 years old with history of Dyspnea; Chest pain, dyspnea, elevated dime r TECHNIQUE/CONTRAST: CTA scan of the thorax is performed with IV Contrast, patient injected with 100 mL of , MIP images ar e created and reviewed these are created on a separate workstation.. CT DLP: 210.60 mGycm, Automated exposure control for dose reduction was used. FINDINGS: Lungs/Pleura: No evidence of focal consolidation, pleural effusion or pneumothorax. Airway: Large airways are patent. Heart: Size within normal limits Vasculature: There is no evidence for a filling defect within the pulmonary vasculature to suggest ac zuni pulmonary embolism. The pulmonary artery is of normal size. Mediastinum: No gross evidence of adenopathy. Musculoskeletal: No acute osseous abnormalities Soft Tissues/lymph nodes: Unremarkable. Lower neck: No significant findings. Upper Abdomen: No significant findings. IMPRESSION: No evidence of pulmonary embolism. [facility], , 09/09/2024 2:39 PM
--- NOTE | 2024-09-11 08:57 | P.DS ---
Providers Date of admission: 09/08/24 17:32 Expected date of discharge: 09/10/24 Attending physician: Vi Miller Consults: 09/08/24 17:31 Consult Physician Urgent Consulting Provider: Ladarius Meyers Consult Reason/Comments: chest pain Do you want consulting provider notified?: Yes Primary care physician: [facility] Course: Discharge diagnoses; Chest pain, acute coronary syndrome ruled out History of SVT Hospital course; patient is a 39-year-old lady with past medical history significant for SVT, PFO s/p closure who presented to the ER because of who presented to the ER because of chest pain. Patient stated that she was all right yesterday when she started having chest pain that was central in location, pressure-like, radiating down her left arm. Patient was complaining of nausea at the time. There was no complaint of any aggravating or relieving factor associated chest pressure. Patient denies any shortness of breath. There is no current orthopnea or PND. Denies any lightheadedness or dizziness. Because of this chest pressure, patient came to the ER Initial lab work done in the ER showed WBC 9.7, hemoglobin 12.3, platelet count 204, sodium 139, potassium 3.8, BUN 7, creatinine 0.60, calcium 9.4, magnesium 2, AST 19, ALT 16, troponin 0.012 EKG done in the ER showed heart rate of 101, no ST segment elevation or depression seen, no T-wave inversions seen. Chest x-ray done in the ER showed no acute cardiopulmonary process Patient admitted to internal medicine service Patient was alert by cardiology, they ordered stress echo. Patient D-dimer was elevated. CTA chest was ordered was negative for PE. Ultrasound lower extremities also negative for DVT. Stress echo done was negative for ischemia. Cardiology cleared the patient for discharge PHYSICAL EXAMINATION: GENERAL: The patient is alert and oriented x3, not in any acute distress. Well developed, well nourished. HEENT: Pupils are round and equally reacting to light. EOMI. No scleral icterus. No conjunctival pallor. Normocephalic, atraumatic. No pharyngeal erythema. No thyromegaly. CARDIOVASCULAR: S1 and S2 present. No murmurs, rubs, or gallops. PULMONARY: Chest is clear to auscultation, no wheezing or crackles. ABDOMEN: Soft, nontender, nondistended, normoactive bowel sounds. No palpable organomegaly. MUSCULOSKELETAL: No joint swelling or deformity. EXTREMITIES: No cyanosis, clubbing, or pedal edema. NEUROLOGICAL: Gross neurological examination did not reveal any focal deficits. SKIN: No rashes. Dictation was produced using [employer] dictation software. please excuse any grammatical, word or spelling errors. 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 Continue same home medications Follow up Discharge Disposition: HOME SELF-CARE
== END 2024-09-09 15:24 | disposition home or self-care (01) ==
LOC: EC 15:24 → 6NMEDSUR 17:32
PROVIDERS: ADMIT Hospitalist; ATTEND Hospitalist
DX: R07.89 Other chest pain (principal); I08.1 Rheumatic disorders of both mitral and tricuspid valves; M32.9 Systemic lupus erythematosus, unspecified; R42 Dizziness and giddiness; R00.0 Tachycardia, unspecified; M79.602 Pain in left arm; R11.0 Nausea; R79.89 Other specified abnormal findings of blood chemistry; Z88.8 Allergy status to other drugs, medicaments and biological substances; Z87.74 Personal history of (corrected) congenital malformations of heart and circulatory system; Z86.73 Personal history of transient ischemic attack (TIA), and cerebral infarction without residual deficits; Z82.49 Family history of ischemic heart disease and other diseases of the circulatory system; Z86.79 Personal history of other diseases of the circulatory system
CPT/HCPCS: 99285; 36415; 93005 ×2; 93351; 85379; 80061; 80053; 83735; 84484; 85025; 85610; 85730; 81025; 71046; 93970; 71275; G0378 ×2; Q9967

== ENCOUNTER 2024-10-27 08:32 | Day surgery (SDC) | payer BC ==
[2024-10-27] MEDS: SODIUM CHLORIDE 0.9% 1,000 ML IV SCH (08:39)
[2024-10-27] MEDS: IV FLUID CONTINUATION 1,000 ML IV ONE (08:42)
[2024-10-27 09:10] VITALS: BP 126/58; RESP 16; TEMP 99.5
[2024-10-27 11:16] VITALS: PULSE 75
--- NOTE | 2024-10-27 14:37 | P.EPPROC ---
- EP Procedure Note Electrophysiology Procedure Note: Diagnosis Recurrent presyncope Twelve-lead EKG shows sinus rhythm normal CA narrow QRS normal ST segments no delta waves no epsilon waves normal QT interval Tilt table test per protocol Baseline blood pressure 104/58 mmHg baseline heart rate 73 beats a minute Patient was tilted upright on maculas 70 degrees per protocol no change in heart rate or blood pressure No evidence for neurocardiogenic syncope Impression Normal twelve-lead EKG Normal heart rate and blood pressure response to upright tilting
== END 2024-10-27 11:01 | disposition home or self-care (01) ==
LOC: CATHEP 08:32
PROVIDERS: ATTEND Internal Medicine Clinical Cardiac Electrophysiology
DX: I47.19 Other supraventricular tachycardia (principal); Q21.12 Patent foramen ovale; Z86.73 Personal history of transient ischemic attack (TIA), and cerebral infarction without residual deficits; Z88.8 Allergy status to other drugs, medicaments and biological substances; Z79.82 Long term (current) use of aspirin; Z79.899 Other long term (current) drug therapy
CPT/HCPCS: 81025; 93660